=== PATIENT | female | born 1950 | race African-American/Black ===

== ENCOUNTER 2018-08-17 14:55 | Inpatient (IN) | payer OTHER ==
--- NOTE | 2018-08-17 16:13 | PDOC ---
History of Present Illness - General Chief Complaint: Cold Symptoms Stated Complaint: Shortness of Breath Time Seen by Provider: 08/17/18 16:13 - History of Present Illness Initial Comments: 67 year ld female with bronchitis, COPD (50year smoking history), CAD, and [place] ( on Eliquis) presenting with productive cough and increasing shortness of breath for the past few weeks. Patient states that she has had these symptoms for the past three weeks and hasn't had any releif with home breathing treatments or antibiotics. She does not remember the antibiotics that Dr. Gabriel Guthrie placed on her. Denies any fevers, chills, nausea, vomiting, diarrhea, increased leg swelling, hemoptysis, constipation or other symptoms. 08/17/18 18:41 Past History - Past Medical History Allergies/Adverse Reactions: Allergies Allergy/AdvReac Type Severity Reaction Status Date / Time Penicillins Allergy Severe Swelling, Verified 08/17/18 15:24 itching, difficulty breathing aspirin AdvReac gastric Verified 08/17/18 15:24 ulcer Home Medications: Ambulatory Orders Albuterol 0.083% Nebulizer Breanna [Ventolin 0.083% Nebulizer Soln -] 1 amp NEB TID 08/17/18 Apixaban [Eliquis] 5 mg PO BID 08/17/18 Diltiazem Cd [Cardizem Cd -] 240 mg PO DAILY 08/17/18 Docusate Sodium [Colace] 100 mg PO BID 08/17/18 Furosemide [Lasix] 40 mg PO DAILY 08/17/18 Gabapentin 400 mg PO HS 08/17/18 Gabapentin [Neurontin -] 300 mg PO Q8H 08/17/18 Linagliptin [Tradjenta] 5 mg PO DAILY 08/17/18 Ranitidine [Zantac -] 150 mg PO DAILY 08/17/18 Tiotropium [place] [Spiriva] 1 inh PO DAILY 08/17/18 Anemia: Yes Asthma: Yes Cardiac Disorders: Yes (cad, mi) CVA: No COPD: Yes (HX bronchitis) CHF: Yes Dementia: No Diabetes: Yes GI Disorders: Yes (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, peptic ulcer, hiatius hernia ) Disorders: Yes (recent dx of kidney disease) HTN: Yes Hypercholesterolemia: Yes (elevated lipids) Liver Disease: No Seizures: No Thyroid Disease: No - Surgical History Abdominal Surgery: Yes Appendectomy: Yes Cardiac Surgery: No Cholecystectomy: Yes Lung Surgery: No Neurologic Surgery: No Orthopedic Surgery: No - Suicide/Smoking/Psychosocial Hx Smoking Status: No Smoking History: Current every day smoker Have you smoked in the past 12 months: Yes Number of Cigarettes Smoked Daily: 4 Information on smoking cessation initiated: Yes 'Breaking Loose' booklet given: 11/29/13 Hx Alcohol Use: No Drug/Substance Use Hx: No Substance Use Type: None Hx Substance Use Treatment: No Review of Systems - Review of Systems Constitutional: No: Diaphoresis, Fever, Loss of Appetite HEENTM: No: Blurred Vision, Tearing Respiratory: Yes: Cough, Shortness of Breath, SOB with Exertion, Productive cough. No: Wheezing Cardiac (ROS): No: Chest Pain, Edema, Irregular Heart Rate, Other ABD/GI: No: Diarrhea, Nausea, Vomiting : No: Burning, Dysuria, Discharge, Frequency Musculoskeletal: No: Joint Pain, Joint Swelling Integumentary: No: Lesions, Lumps, Pallor Neurological: No: Numbness, Paresthesia, Tremors Psychiatric: No: Anxiety, Depression Endocrine: No: Flushing, Intolerance to Heat, Increased Hunger, Increased Thirst Hematologic/Lymphatic: Yes: Blood Clots, Easy Bleeding. No: Anemia *Physical Exam - Vital Signs Last Vital Signs Temp Pulse Resp BP Pulse Ox 98.3 F 69 18 127/61 99 08/17/18 15:24 08/17/18 15:24 08/17/18 15:24 08/17/18 15:24 08/17/18 15:24 - Physical Exam General Appearance: Yes: Nourished, Appropriately Dressed. No: Apparent Distress HEENT: positive: EOMI, LUCIUS, Normal ENT Inspection, Normal Voice Neck: positive: Trachea midline, Normal Thyroid, Supple. negative: Tender, Rigid Respiratory/Chest: negative: Chest Tender, Lungs Clear, Normal Breath Sounds ( bilaterla coarse breath sounds that are overall diminished), Respiratory Distress, Accessory Muscle Use Cardiovascular: positive: Regular Rhythm, Regular Rate Gastrointestinal/Abdominal: positive: Normal Bowel Sounds, Flat, Soft. negative : Tender Lymphatic: negative: Adenopathy, Tenderness Musculoskeletal: positive: Normal Inspection ED Treatment Course - LABORATORY CBC & Chemistry Diagram: 08/17/18 17:30 08/17/18 17:30 Medical Decision Making - Medical Decision Making 67 year old female with history of COPD and cough plus SOB for the past few weeks. She has been treated with steroids, abx, and nebs outpatient without much relief. WBC 16, CXR clear, but patient overall is higher risk given her refractory symptoms. Will bring in for IV abx under Hameedi. Given Levaquin and BNP sent. 08/17/18 19:54 *DC/Admit/Observation/Transfer Diagnosis at time of Disposition: COPD exacerbation PNA (pneumonia) Qualifiers: Pneumonia type: due to unspecified organism Laterality: unspecified laterality Lung location: unspecified part of lung Qualified Code(s): J18.9 - Pneumonia, unspecified organism CKD (chronic kidney disease) Qualifiers: Chronic kidney disease stage: stage 3 (moderate) Qualified Code(s): N18.3 - Chronic kidney disease, stage 3 (moderate) - Referrals Referrals: Gabriel Guthrie [Primary Care Provider] - - Patient Instructions - Post Discharge Activity
--- NOTE | 2018-08-17 17:23 | PDOC ---
Attending Attestation - Resident Resident Name: Bisi Aguilar - ED Attending Attestation I have performed the following: I have examined & evaluated the patient, The case was reviewed & discussed with the resident, I agree w/resident's findings & plan, Exceptions are as noted - HPI HPI: 08/17/18 18:14 The patient is a 67 year old female, with a significant past medical history of anemia, asthma, CAD (s/p [place]), COPD, CHF, DM, peptic ulcers, HTN, HLD, and lupus , who presents to the emergency department with, a cough, wheezing, and shortness of breath. As per patient, she was evaluated by her PCP for similar symptoms several weeks ago and placed on Prednisone and antibiotics. She notes her symptoms have not resolved, prompting her visit to the ER.. Allergies: Penicillins, aspirin Primary Care Physician: Dr. Guthrie <Elvis Trejo - Last Filed: 08/17/18 18:14> - Physicial Exam PE: 08/17/18 19:29 Agree with resident exam. Patient is well appearing with good air entry and with wheezes in the bases. Speaking in complete sentences. CV: RRR no murmurs. - Medical Decision Making 08/17/18 19:30 Pt presents to the ED complaining of shortness of breath and productive cough, despite abx, nebs and steroids by PMD. elevated wbc count. Given history and failure of outpatient meds, will admit to medicine for COPD exacerbation. <Tressa Fine - Last Filed: 08/17/18 19:32> Attestations - Attestations 08/17/18 18:14 Documentation prepared by Elvis Trejo, acting as emergency medical tech for Tressa Fine MD. <Elvis Trejo - Last Filed: 08/17/18 18:14>
[2018-08-17 17:55] LABS: BASO % 0.8 % (0-2.0); EOS % 0.4 % (0-4.5); HEMATOCRIT 51.3 % (32.4-45.2); HEMOGLOBIN 16.6 GM/dL (10.7-15.3); LYMPH % 19.2 % (8-40); MCH 30.5 pg (25.7-33.7); MCHC 32.4 g/dl (32.0-36.0); MEAN CELL VOLUME 94.2 fl (80-96); MEAN PLT VOLUME 8.3 fl (7.5-11.1); MONO % 5.5 % (3.8-10.2); NEUT % 74.1 % (42.8-82.8); PLATELET COUNT 308 K/MM3 (134-434); RBC 5.45 M/mm3 (3.60-5.2); RDW 14.7 % (11.6-15.6); WHITE BLOOD COUNT 16.4 K/mm3 (4.0-10.0)
[2018-08-17 17:57] LABS: VENOUS PC02 51.7 mmHg (38-52); VENOUS PH 7.37 (7.32-7.42); VENOUS PO2 34.3 mmHg (28-48)
[2018-08-17] MEDS ORDERED: methylPREDNISolone NA SUCC 125 MG/2 ML VIAL IVPB ONE (18:23)
[2018-08-17 18:28] LABS: ALBUMIN 3.2 g/dl (3.4-5.0); ALK PHOS 102 U/L (45-117); ANION GAP 7 MMOL/L (8-16); BILIRUBIN,TOTAL 0.3 mg/dL (0.2-1); BLOOD UREA NITROGEN 39 mg/dL (7-18); CALCIUM 9.5 mg/dL (8.5-10.1); CHLORIDE 103 mmol/L (98-107); CO2 29 mmol/L (21-32); CREATININE 1.8 mg/dL (0.55-1.3); POTASSIUM 4.7 mmol/L (3.5-5.1); SGOT/AST 12 U/L (15-37); SGPT/ALT 28 U/L (13-61); SODIUM 139 mmol/L (136-145); TOT PROT 6.8 g/dl (6.4-8.2)
[2018-08-17 18:35] LABS: GLUCOSE,RANDOM 308 mg/dL (74-106)
[2018-08-17] MEDS ORDERED: ALBUTEROL SO4 2.5/IPRATROPIUM 0.5 INH SOL 3 ML VIAL.NEB. NEB ONE (18:37)
[2018-08-17] MEDS ORDERED: ALBUTEROL SO4 0.083% IH SOL 2.5 MG/3 ML VIAL.NEB. NEB ONE (18:37)
[2018-08-17] MEDS: ALBUTEROL SO4 2.5/IPRATROPIUM 0.5 INH SOL 3 ML VIAL.NEB. NEB SCH ×4 (18:42→19:15)
[2018-08-17] MEDS ORDERED: methylPREDNISolone NA SUCC 125 MG/2 ML VIAL ONE (18:45)
[2018-08-17 19:53] LABS: N-TERMINAL BNP 2427.1 pg/ml (5-125)
--- NOTE | 2018-08-17 23:53 | HP ---
Admitting History and Physical - Primary Care Physician PCP: Hilario Lomeli - Admission History of Present Illness: 67 year ld female with bronchitis, COPD (50year smoking history), CAD, and [place] ( on Eliquis) presenting with productive cough and increasing shortness of breath for the past few weeks. Patient states that she has had these symptoms for the past three weeks and hasn't had any releif with home breathing treatments or antibiotics. She does not remember the antibiotics that Dr. Gabriel Guthrie placed on her. Denies any fevers, chills, nausea, vomiting, diarrhea, increased leg swelling, hemoptysis, constipation or other symptoms. - Past Medical History Cardiovascular: Yes: CAD, [place] Pulmonary: Yes: COPD - Smoking History Smoking history: Current every day smoker Have you smoked in the past 12 months: Yes Aproximately how many cigarettes per day: 4 - Alcohol/Substance Use Hx Alcohol Use: No Home Medications - Allergies Allergies/Adverse Reactions: Allergies Allergy/AdvReac Type Severity Reaction Status Date / Time Penicillins Allergy Severe Swelling, Verified 08/17/18 15:24 itching, difficulty breathing aspirin AdvReac gastric Verified 08/17/18 15:24 ulcer - Home Medications Home Medications: Ambulatory Orders Albuterol 0.083% Nebulizer Breanna [Ventolin 0.083% Nebulizer Soln -] 1 amp NEB TID 08/17/18 Apixaban [Eliquis] 5 mg PO BID 08/17/18 Diltiazem Cd [Cardizem Cd -] 240 mg PO DAILY 08/17/18 Docusate Sodium [Colace] 100 mg PO BID 08/17/18 Furosemide [Lasix] 40 mg PO DAILY 08/17/18 Gabapentin 400 mg PO HS 08/17/18 Gabapentin [Neurontin -] 300 mg PO Q8H 08/17/18 Linagliptin [Tradjenta] 5 mg PO DAILY 08/17/18 Ranitidine [Zantac -] 150 mg PO DAILY 08/17/18 Tiotropium [place] [Spiriva] 1 inh PO DAILY 08/17/18 Physical Examination Vital Signs: Vital Signs Temperature 97.7 F 08/17/18 23:05 Pulse Rate 84 08/17/18 23:05 Respiratory Rate 16 08/17/18 23:05 Blood Pressure 114/56 L 08/17/18 23:05 O2 Sat by Pulse Oximetry (%) 94 L 08/17/18 23:05 Constitutional: Yes: No Distress HENT: Yes: Atraumatic Neck: Yes: Supple Cardiovascular: Yes: Regular Rate and Rhythm Respiratory: Yes: Rhonchi, Wheezes Gastrointestinal: Yes: Normal Bowel Sounds Extremities: Yes: WNL Edema: No Peripheral Pulses WNL: Yes Neurological: Yes: Alert, Oriented Labs: CBC, BMP 08/17/18 17:30 08/17/18 17:30 Problem List - Problems (1) COPD exacerbation Assessment/Plan: duo nebs iv steroids if needed Code(s): J44.1 - CHRONIC OBSTRUCTIVE PULMONARY DISEASE W (ACUTE) EXACERBATION (2) PNA (pneumonia) Assessment/Plan: on abx id consult Code(s): J18.9 - PNEUMONIA, UNSPECIFIED ORGANISM Qualifiers: Pneumonia type: due to unspecified organism Laterality: unspecified laterality Lung location: unspecified part of lung Qualified Code(s): J18.9 - Pneumonia, unspecified organism (3) CKD (chronic kidney disease) Code(s): N18.9 - CHRONIC KIDNEY DISEASE, UNSPECIFIED Qualifiers: Chronic kidney disease stage: stage 3 (moderate) Qualified Code(s): N18.3 - Chronic kidney disease, stage 3 (moderate) (4) ASHD (arteriosclerotic heart disease) Code(s): I25.10 - ATHSCL HEART DISEASE OF [place] CORONARY ARTERY W/O ANG PCTRS (5) Bronchitis Code(s): J40 - BRONCHITIS, NOT SPECIFIED ACUTE OR CHRONIC (6) Diabetes Assessment/Plan: on meds bgms Code(s): E11.9 - TYPE 2 DIABETES MELLITUS WITHOUT COMPLICATIONS (7) Tobacco abuse Code(s): Z72.0 - TOBACCO USE Assessment/Plan Laboratory Tests 08/17/18 08/17/18 08/17/18 17:30 17:30 17:30 WBC 16.4 H RBC 5.45 H Hgb 16.6 H Hct 51.3 H MCV 94.2 MCH 30.5 MCHC 32.4 RDW 14.7 Plt Count 308 MPV 8.3 Absolute Neuts (auto) 12.2 H Neutrophils % 74.1 Lymphocytes % 19.2 D Monocytes % 5.5 Eosinophils % 0.4 Basophils % 0.8 Nucleated RBC % 0 VBG pH 7.37 POC VBG pCO2 51.7 POC VBG pO2 34.3 Mixed VBG HCO3 29.3 H Sodium 139 Potassium 4.7 Chloride 103 Carbon Dioxide 29 Anion Gap 7 L BUN 39 H Creatinine 1.8 H Creat Clearance w eGFR 27.90 Random Glucose 308 H* Calcium 9.5 Total Bilirubin 0.3 AST 12 L ALT 28 Alkaline Phosphatase 102 B-Natriuretic Peptide 2427.1 H Total Protein 6.8 Albumin 3.2 L Active Medications Generic Name Dose Route Start Last Admin Trade Name Freq PRN Reason Stop Dose Admin Albuterol/Ipratropium 1 amp 08/17/18 23:54 08/18/18 16:17 Duoneb - NEB 1 amp Q4H PRN Administration SHORTNESS OF BREATH Apixaban 5 mg 08/18/18 10:00 08/18/18 10:01 Eliquis - PO 5 mg BID DANISH Administration Diltiazem HCl 240 mg 08/18/18 10:00 08/18/18 10:01 Cardizem Cd - PO 240 mg DAILY DANISH Administration Docusate Sodium 100 mg 08/18/18 10:00 08/18/18 10:01 Colace - PO 100 mg BID DANISH Administration Emollient Ointment 1 applic 08/18/18 12:38 Aquaphor - TP Q12H PRN DRYNESS Furosemide 40 mg 08/18/18 10:00 08/18/18 10:01 Lasix - PO 40 mg DAILY [facility]ANISH Administration Gabapentin 300 mg 08/18/18 06:00 08/18/18 13:10 Neurontin - PO 300 mg TID DANISH Administration Guaifenesin 10 ml 08/18/18 12:37 08/18/18 13:10 Robitussin - PO 10 ml Q6H PRN Administration COUGHING Aztreonam 1 gm/ Dextrose 50 mls @ 100 mls/hr 08/18/18 13:45 08/18/18 15:01 IVPB 100 mls/hr BID DANISH Administration Protocol Clindamycin Phosphate 300 mg in 50 mls @ 100 mls/hr 08/18/18 14:15 08/18/18 17:35 Cleocin 300 Mg Premix Ivpb IVPB 100 mls/hr Q8H-IV DANISH Administration Protocol Ranitidine HCl 150 mg 08/18/18 10:00 08/18/18 10:00 Zantac - PO 150 mg DAILY DANISH Administration Sitagliptin Phosphate 25 mg 08/18/18 07:00 08/18/18 06:30 Januvia - PO Not Given DAILY@0700 [facility] Tiotropium [place] 2 puff 08/18/18 10:00 08/18/18 13:09 Spiriva Respimat IH 2 puff DAILY DANISH Administration
[2018-08-18] MEDS: sitaGLIPtin PHOSPHATE 25 MG TABLET (FP) PO SCH (06:30)
[2018-08-18] MEDS: GABAPENTIN 300 MG CAPSULE (FP) PO SCH ×3 (06:30→22:15)
[2018-08-18 07:15] LABS: BASO % 0.1 % (0-2.0); HEMATOCRIT 47.3 % (32.4-45.2); HEMOGLOBIN 15.4 GM/dL (10.7-15.3); LYMPH % 6.5 % (8-40); MCH 30.7 pg (25.7-33.7); MCHC 32.5 g/dl (32.0-36.0); MEAN CELL VOLUME 94.5 fl (80-96); MEAN PLT VOLUME 8.2 fl (7.5-11.1); MONO % 0.7 % (3.8-10.2); NEUT % 92.7 % (42.8-82.8); PLATELET COUNT 244 K/MM3 (134-434); RBC 5.01 M/mm3 (3.60-5.2); RDW 14.2 % (11.6-15.6)
[2018-08-18 08:16] LABS: ALBUMIN 2.9 g/dl (3.4-5.0); ALK PHOS 102 U/L (45-117); ANION GAP 7 MMOL/L (8-16); BILIRUBIN,TOTAL 0.6 mg/dL (0.2-1); BLOOD UREA NITROGEN 45 mg/dL (7-18); CHLORIDE 100 mmol/L (98-107); CO2 29 mmol/L (21-32); CREATININE 2.1 mg/dL (0.55-1.3); POTASSIUM 5.1 mmol/L (3.5-5.1); SGOT/AST 25 U/L (15-37); SGPT/ALT 37 U/L (13-61); SODIUM 136 mmol/L (136-145); TOT PROT 6.6 g/dl (6.4-8.2)
[2018-08-18 08:21] LABS: GLUCOSE,RANDOM 462 mg/dL (74-106)
--- NOTE | 2018-08-18 09:51 | CON.ID ---
Consult Consult Specialty:: infectious diseases Referred by:: Reason for Consultation:: pneumonia - History of Present Illness Chief Complaint: cough,sob History of Present Illness: 67 year old female, with a significant past medical history of anemia, asthma, CAD (s/p [place]), COPD, CHF, DM, peptic ulcers, HTN, HLD, and lupus, admitted to the hospital because of cough sob wheezing patient was given a trial of steroids and abx by her pcp on the outside which did not help her and patient came to the hospital here patient mentions of significant sob, yellowish green sputum production - History Source Limitations to Obtaining History: No Limitations - Alcohol/Substance Use Hx Alcohol Use: No - Smoking History Smoking history: Current every day smoker Have you smoked in the past 12 months: Yes Aproximately how many cigarettes per day: 4 Home Medications - Allergies Allergies/Adverse Reactions: Allergies Allergy/AdvReac Type Severity Reaction Status Date / Time Penicillins Allergy Severe Swelling, Verified 08/17/18 15:24 itching, difficulty breathing aspirin AdvReac gastric Verified 08/17/18 15:24 ulcer - Home Medications Home Medications: Ambulatory Orders Albuterol 0.083% Nebulizer Breanna [Ventolin 0.083% Nebulizer Soln -] 1 amp NEB TID 08/17/18 Apixaban [Eliquis] 5 mg PO BID 08/17/18 Diltiazem Cd [Cardizem Cd -] 240 mg PO DAILY 08/17/18 Docusate Sodium [Colace] 100 mg PO BID 08/17/18 Furosemide [Lasix] 40 mg PO DAILY 08/17/18 Gabapentin 400 mg PO HS 08/17/18 Gabapentin [Neurontin -] 300 mg PO Q8H 08/17/18 Linagliptin [Tradjenta] 5 mg PO DAILY 08/17/18 Ranitidine [Zantac -] 150 mg PO DAILY 08/17/18 Tiotropium [place] [Spiriva] 1 inh PO DAILY 08/17/18 Review of Systems - Review of Systems Constitutional: reports: No Symptoms Eyes: reports: No Symptoms HENT: reports: No Symptoms Neck: reports: No Symptoms Cardiovascular: reports: No Symptoms Respiratory: reports: SOB, SOB on Exertion, Other (cough) Gastrointestinal: reports: No Symptoms Genitourinary: reports: No Symptoms Musculoskeletal: reports: No Symptoms Integumentary: reports: No Symptoms Neurological: reports: No Symptoms Endocrine: reports: No Symptoms Hematology/Lymphatic: reports: No Symptoms Psychiatric: reports: No Symptoms Physical Exam Vital Signs: Vital Signs Temperature 98.1 F 08/18/18 06:00 Pulse Rate 76 08/18/18 06:00 Respiratory Rate 20 08/18/18 06:00 Blood Pressure 120/58 L 08/18/18 06:00 O2 Sat by Pulse Oximetry (%) 94 L 08/17/18 23:05 Constitutional: Yes: Well Nourished, Calm, Mild Distress, Obese Eyes: Yes: Conjunctiva Clear HENT: Yes: Atraumatic, Normocephalic Neck: Yes: Supple, Trachea Midline Cardiovascular: Yes: Regular Rate and Rhythm Respiratory: Yes: Regular, Rhonchi, SOB, SOB on Exertion Gastrointestinal: Yes: Normal Bowel Sounds, Soft Musculoskeletal: Yes: WNL Extremities: Yes: WNL Neurological: Yes: Alert, Oriented Psychiatric: Yes: Alert, Oriented Labs: CBC, BMP 08/18/18 06:30 08/18/18 06:30 Imaging - Results Chest X-ray: Report Reviewed, Image Reviewed Assessment/Plan - Problems (1) COPD exacerbation Code(s): J44.1 - CHRONIC OBSTRUCTIVE PULMONARY DISEASE W (ACUTE) EXACERBATION (2) PNA (pneumonia) Code(s): J18.9 - PNEUMONIA, UNSPECIFIED ORGANISM Qualifiers: Pneumonia type: due to unspecified organism Laterality: unspecified laterality Lung location: unspecified part of lung Qualified Code(s): J18.9 - Pneumonia, unspecified organism (3) CKD (chronic kidney disease) Code(s): N18.9 - CHRONIC KIDNEY DISEASE, UNSPECIFIED Qualifiers: Chronic kidney disease stage: stage 3 (moderate) Qualified Code(s): N18.3 - Chronic kidney disease, stage 3 (moderate) plan will start patient on aztreonam resp support incentive brianna rest as per the team
[2018-08-18] MEDS ORDERED: PT OWN MED DRAWER 7, Y5N ONE ×4 (09:55→21:59)
[2018-08-18] MEDS: RANITIDINE HCL 150 MG TABLET (FP) PO SCH (10:00)
[2018-08-18] MEDS ORDERED: PATIENT'S OWN MEDICATION (NON-FORMULARY) (Linagliptin [Tradjenta] 5 MG) PO SCH (10:00)
[2018-08-18] MEDS: APIXABAN 5 MG TABLET PO SCH ×2 (10:01→22:14)
[2018-08-18] MEDS: FUROSEMIDE 40 MG TABLET (FP) PO SCH (10:01)
[2018-08-18] MEDS: DOCUSATE SODIUM 100 MG CAPSULE (FP) PO SCH ×2 (10:01→22:14)
[2018-08-18 10:34] LABS: ANISOCYTOSIS 1+; MACROCYTOSIS 1+; PLATELET ESTIMATE NORMAL
[2018-08-18] MEDS: ALBUTEROL SO4 2.5/IPRATROPIUM 0.5 INH SOL 3 ML VIAL.NEB. NEB PRN ×3 (11:22→21:59)
[2018-08-18] MEDS: TIOTROPIUM BROMIDE 2.5 MCG (SPIRIVA) RESPIMAT INHALER IH SCH (13:09)
[2018-08-18] MEDS: guaiFENesin 200 MG/10 ML 10 ML UNIT-DOSE CUPS PO PRN ×2 (13:10→22:31)
[2018-08-18] MEDS ORDERED: CLINDAMYCIN IVPB 300 MG in DEXTROSE 5%-WATER - 48 ML IVPB SCH (13:45)
[2018-08-18] MEDS ORDERED: CLINDAMYCIN 300 MG PREMIX IVPB 300 MG/50 ML BAG IVPB SCH (14:06)
[2018-08-18] MEDS: AZTREONAM 1 GM in DEXTROSE 5%-WATER - 50 ML IVPB SCH ×2 (15:01→22:09)
[2018-08-18] MEDS: CLINDAMYCIN 300 MG PREMIX IVPB 300 MG/50 ML BAG IVPB SCH ×2 (15:59→17:35)
--- NOTE | 2018-08-18 16:03 | PN ---
Progress Note, Physician History of Present Illness: feeling better - Current Medication List Current Medications: Active Medications Albuterol/Ipratropium (Duoneb -) 1 amp NEB Q4H PRN PRN Reason: SHORTNESS OF BREATH Last Admin: 08/18/18 11:22 Dose: 1 amp Apixaban (Eliquis -) 5 mg PO BID [facility] Last Admin: 08/18/18 10:01 Dose: 5 mg Diltiazem HCl (Cardizem Cd -) 240 mg PO DAILY [facility] Last Admin: 08/18/18 10:01 Dose: 240 mg Docusate Sodium (Colace -) 100 mg PO BID [facility] Last Admin: 08/18/18 10:01 Dose: 100 mg Emollient Ointment (Aquaphor -) 1 applic TP Q12H PRN PRN Reason: DRYNESS Furosemide (Lasix -) 40 mg PO DAILY [facility] Last Admin: 08/18/18 10:01 Dose: 40 mg Gabapentin (Neurontin -) 300 mg PO TID [facility] Last Admin: 08/18/18 13:10 Dose: 300 mg Guaifenesin (Robitussin -) 10 ml PO Q6H PRN PRN Reason: COUGHING Last Admin: 08/18/18 13:10 Dose: 10 ml Aztreonam 1 gm/ Dextrose 50 mls @ 100 mls/hr IVPB BID [facility]; Protocol Last Admin: 08/18/18 15:01 Dose: 100 mls/hr Clindamycin Phosphate (Cleocin 300 Mg Premix Ivpb) 300 mg in 50 mls @ 100 mls/ hr IVPB Q8H-IV [facility]ANISH; Protocol Last Admin: 08/18/18 15:59 Dose: 100 mls/hr Ranitidine HCl (Zantac -) 150 mg PO DAILY [facility] Last Admin: 08/18/18 10:00 Dose: 150 mg Sitagliptin Phosphate (Januvia -) 25 mg PO DAILY@0700 [facility] Last Admin: 08/18/18 06:30 Dose: Not Given Tiotropium [place] (Spiriva Respimat) 2 puff IH DAILY [facility] Last Admin: 08/18/18 13:09 Dose: 2 puff - Objective Vital Signs: Vital Signs Temperature 98.2 F 08/18/18 13:58 Pulse Rate 98 H 08/18/18 13:58 Respiratory Rate 20 08/18/18 13:58 Blood Pressure 111/76 08/18/18 13:58 O2 Sat by Pulse Oximetry (%) 96 08/18/18 09:00 Constitutional: Yes: No Distress HENT: Yes: Atraumatic Neck: Yes: Supple Cardiovascular: Yes: Regular Rate and Rhythm Respiratory: Yes: Rhonchi, Wheezes Gastrointestinal: Yes: Normal Bowel Sounds Extremities: Yes: WNL Edema: No Peripheral Pulses WNL: Yes Neurological: Yes: Alert, Oriented Labs: CBC, BMP 08/18/18 06:30 08/18/18 06:30 Problem List - Problems (1) COPD exacerbation Assessment/Plan: duo nebs iv steroids if needed Code(s): J44.1 - CHRONIC OBSTRUCTIVE PULMONARY DISEASE W (ACUTE) EXACERBATION (2) PNA (pneumonia) Assessment/Plan: on abx id consult Code(s): J18.9 - PNEUMONIA, UNSPECIFIED ORGANISM Qualifiers: Pneumonia type: due to unspecified organism Laterality: unspecified laterality Lung location: unspecified part of lung Qualified Code(s): J18.9 - Pneumonia, unspecified organism (3) Diabetes Assessment/Plan: on meds bgms Code(s): E11.9 - TYPE 2 DIABETES MELLITUS WITHOUT COMPLICATIONS (4) ASHD (arteriosclerotic heart disease) Code(s): I25.10 - ATHSCL HEART DISEASE OF [place] CORONARY ARTERY W/O ANG PCTRS (5) Acute hypercapnic respiratory failure Code(s): J96.02 - ACUTE RESPIRATORY FAILURE WITH HYPERCAPNIA (6) CKD (chronic kidney disease) Code(s): N18.9 - CHRONIC KIDNEY DISEASE, UNSPECIFIED Qualifiers: Chronic kidney disease stage: stage 3 (moderate) Qualified Code(s): N18.3 - Chronic kidney disease, stage 3 (moderate) (7) Tobacco abuse Code(s): Z72.0 - TOBACCO USE
[2018-08-18] MEDS: methylPREDNISolone NA SUCC 40 MG/1 ML VIAL IVPUSH SCH (22:07)
[2018-08-18] MEDS: INSULIN SLIDING SCALE (NOVOLOG) 1 VIAL SQ SCH (22:15)
[2018-08-19] MEDS: CLINDAMYCIN 300 MG PREMIX IVPB 300 MG/50 ML BAG IVPB SCH ×3 (02:19→17:50)
[2018-08-19] MEDS: methylPREDNISolone NA SUCC 40 MG/1 ML VIAL IVPUSH SCH ×4 (03:39→17:50)
[2018-08-19] MEDS: GABAPENTIN 300 MG CAPSULE (FP) PO SCH ×3 (06:30→21:05)
[2018-08-19] MEDS: INSULIN SLIDING SCALE (NOVOLOG) 1 VIAL SQ SCH ×4 (06:31→21:05)
[2018-08-19] MEDS: sitaGLIPtin PHOSPHATE 25 MG TABLET (FP) PO SCH (06:31)
[2018-08-19] MEDS: ALBUTEROL SO4 2.5/IPRATROPIUM 0.5 INH SOL 3 ML VIAL.NEB. NEB PRN ×2 (06:48→12:50)
[2018-08-19] MEDS ORDERED: PT OWN MED DRAWER 7, Y5N ONE ×2 (08:44→21:02)
[2018-08-19] MEDS: APIXABAN 5 MG TABLET PO SCH ×2 (09:26→21:05)
[2018-08-19] MEDS: FUROSEMIDE 40 MG TABLET (FP) PO SCH (09:26)
[2018-08-19] MEDS: RANITIDINE HCL 150 MG TABLET (FP) PO SCH (09:26)
[2018-08-19] MEDS: DOCUSATE SODIUM 100 MG CAPSULE (FP) PO SCH ×2 (09:26→21:05)
[2018-08-19] MEDS: guaiFENesin 200 MG/10 ML 10 ML UNIT-DOSE CUPS PO PRN (09:27)
[2018-08-19] MEDS: AZTREONAM 1 GM in DEXTROSE 5%-WATER - 50 ML IVPB SCH ×2 (09:27→21:04)
[2018-08-19] MEDS: TIOTROPIUM BROMIDE 2.5 MCG (SPIRIVA) RESPIMAT INHALER IH SCH (09:49)
--- NOTE | 2018-08-19 12:20 | PN ---
Progress Note, Physician History of Present Illness: still continues to cough says still greenish sputum still sob - Current Medication List Current Medications: Active Medications Albuterol/Ipratropium (Duoneb -) 1 amp NEB Q4H PRN PRN Reason: SHORTNESS OF BREATH Last Admin: 08/19/18 06:48 Dose: 1 amp Apixaban (Eliquis -) 5 mg PO BID [facility] Last Admin: 08/19/18 09:26 Dose: 5 mg Diltiazem HCl (Cardizem Cd -) 240 mg PO DAILY [facility] Last Admin: 08/19/18 09:27 Dose: 240 mg Docusate Sodium (Colace -) 100 mg PO BID [facility] Last Admin: 08/19/18 09:26 Dose: 100 mg Emollient Ointment (Aquaphor -) 1 applic TP Q12H PRN PRN Reason: DRYNESS Furosemide (Lasix -) 40 mg PO DAILY [facility] Last Admin: 08/19/18 09:26 Dose: 40 mg Gabapentin (Neurontin -) 300 mg PO TID [facility] Last Admin: 08/19/18 06:30 Dose: 300 mg Guaifenesin (Robitussin -) 10 ml PO Q6H PRN PRN Reason: COUGHING Last Admin: 08/19/18 09:27 Dose: 10 ml Aztreonam 1 gm/ Dextrose 50 mls @ 100 mls/hr IVPB BID [facility]; Protocol Last Admin: 08/19/18 09:27 Dose: 100 mls/hr Clindamycin Phosphate (Cleocin 300 Mg Premix Ivpb) 300 mg in 50 mls @ 100 mls/ hr IVPB Q8H-IV [facility]; Protocol Last Admin: 08/19/18 09:28 Dose: 100 mls/hr Insulin Aspart (Novolog Vial Sliding Scale -) 1 vial SQ ACHS [facility]; Protocol Last Admin: 08/19/18 11:12 Dose: Not Given Methylprednisolone Sodium Succinate (Solu-Medrol -) 60 mg IVPUSH Q6H-IV [facility] Last Admin: 08/19/18 09:27 Dose: 60 mg Ranitidine HCl (Zantac -) 150 mg PO DAILY [facility] Last Admin: 08/19/18 09:26 Dose: 150 mg Sitagliptin Phosphate (Januvia -) 25 mg PO DAILY@0700 [facility] Last Admin: 08/19/18 06:31 Dose: Not Given Tiotropium [place] (Spiriva Respimat) 2 puff IH DAILY [facility] Last Admin: 08/19/18 09:49 Dose: 2 puff - Objective Vital Signs: Vital Signs Temperature 98.2 F 08/19/18 10:00 Pulse Rate 96 H 08/19/18 10:00 Respiratory Rate 26 H 08/19/18 10:00 Blood Pressure 132/64 08/19/18 10:00 O2 Sat by Pulse Oximetry (%) 99 08/19/18 09:00 Constitutional: Yes: Calm, Mild Distress, Obese Cardiovascular: Yes: S1, S2 Respiratory: Yes: On Nasal O2, Poor Air Entry (bases), Rhonchi Gastrointestinal: Yes: Normal Bowel Sounds, Soft Musculoskeletal: Yes: WNL Extremities: Yes: WNL Neurological: Yes: Alert, Oriented Psychiatric: Yes: Alert, Oriented Labs: CBC, BMP 08/18/18 06:30 08/18/18 06:30 Assessment/Plan - Problems (1) COPD exacerbation Code(s): J44.1 - CHRONIC OBSTRUCTIVE PULMONARY DISEASE W (ACUTE) EXACERBATION (2) PNA (pneumonia) Code(s): J18.9 - PNEUMONIA, UNSPECIFIED ORGANISM Qualifiers: Pneumonia type: due to unspecified organism Laterality: unspecified laterality Lung location: unspecified part of lung Qualified Code(s): J18.9 - Pneumonia, unspecified organism (3) CKD (chronic kidney disease) Code(s): N18.9 - CHRONIC KIDNEY DISEASE, UNSPECIFIED Qualifiers: Chronic kidney disease stage: stage 3 (moderate) Qualified Code(s): N18.3 - Chronic kidney disease, stage 3 (moderate) plan ct abx resp support incentive brianna rest as per the team
--- NOTE | 2018-08-19 14:31 | PN ---
Progress Note (short form) - Note Progress Note: PULMONARY CONSULTATION DICTATED 08/19/18 IMP ACUTE HYPERCAPNEIC RESPIRATORY FAILURE COPD EXACERBATION LIKELY URI ASHD S/P OK CKD H/O DVT HYPERGLYCEMIA TOBACCO ABUSE PLAN IV STEROIDS INHALED BRONCHODILATORS ABX SPUTUM C+S GLYCEMIC CONTROL PFTS OUTPATIENT O2 SAT AT REST AND EXERCISE ON RA TO DETERMINE IF PT IS A CANDIDATE FOR HOME O2 F/U ABG ON RA DR WILLIAMSON Problem List - Problems (1) Bronchitis Code(s): J40 - BRONCHITIS, NOT SPECIFIED ACUTE OR CHRONIC (2) CKD (chronic kidney disease) Code(s): N18.9 - CHRONIC KIDNEY DISEASE, UNSPECIFIED Qualifiers: Chronic kidney disease stage: stage 3 (moderate) Qualified Code(s): N18.3 - Chronic kidney disease, stage 3 (moderate) (3) COPD exacerbation Code(s): J44.1 - CHRONIC OBSTRUCTIVE PULMONARY DISEASE W (ACUTE) EXACERBATION (4) Diabetes Code(s): E11.9 - TYPE 2 DIABETES MELLITUS WITHOUT COMPLICATIONS (5) ASHD (arteriosclerotic heart disease) Code(s): I25.10 - ATHSCL HEART DISEASE OF [place] CORONARY ARTERY W/O ANG PCTRS (6) Tobacco abuse Code(s): Z72.0 - TOBACCO USE (7) Tobacco abuse counseling Code(s): Z71.6 - TOBACCO ABUSE COUNSELING (8) Acute hypercapnic respiratory failure Code(s): J96.02 - ACUTE RESPIRATORY FAILURE WITH HYPERCAPNIA
--- NOTE | 2018-08-19 15:19 | CONS ---
DATE OF CONSULTATION: 08/19/2018 PULMONARY CONSULTATION REFERRING PHYSICIAN: Hilario Lomeli MD HISTORY OF PRESENT ILLNESS: The patient is a 67-year-old Black female with a past medical history of chronic obstructive pulmonary disease maintained on inhaled bronchodilators, ASHD, status post [place], a history of DVT right lower extremity approximately 4 years ago on Eliquis, and a history of tobacco use currently smoking about 7 or 8 cigarettes daily for many years admitted to [facility] with a 2-week history of increasing shortness of breath, chest congestion and a cough productive of white yellow sputum. The patient states she was doing okay until a couple of weeks ago when she started developing increasing chest congestion. She started taking an increasing dose of her nebulizers which offered no significant improvement at which time she presented to the emergency room. Of note also is that she was treated with antibiotics which did not improve her symptoms. On admission she was felt to have acute COPD exacerbation. She was evaluated by Infectious Disease and placed on antibiotic therapy. The patient has a history of COPD for years. She is a retired RN. There is no history of recent travel. There is no history of hemoptysis, chest pains, or palpitations. She denies any fevers, weight loss or night sweats. PAST MEDICAL HISTORY: Again includes COPD, a history of DVT, ASHD, status post [place], hypercholesterolemia, bronchitis, and chronic kidney disease. REVIEW OF SYSTEMS: Positive shortness of breath, positive cough, and positive chest congestion. No chest pain, no palpitations, no nausea, no vomiting, no abdominal pain, no fevers, no chills, no weight loss or night sweats, and no lower extremity edema. CURRENT MEDICATIONS: Include Solu-Medrol 60 every 6 hours, Azactam, clindamycin , Eliquis, Neurontin, Spiriva, Aquaphor, Cardizem, Colace, Januvia, robitussin, Zantac, and Lasix. PHYSICAL EXAMINATION: General: The patient is an elderly Black female who is awake, alert, and mildly congested but in no acute distress. Vital Signs: She is afebrile. Heart rate is 96, blood pressure 132/64, respiratory rate is 20, and oxygen saturation is 99% on 2 L nasal cannula. HEENT: Normocephalic, atraumatic. Neck: Supple. Heart: Regular S1, S2. Chest: Scattered bilateral rhonchi. Abdomen: Soft. Bowel sounds are positive. Extremities: No cyanosis, clubbing, or edema. LABORATORY DATA: WBC is 15, hemoglobin is 15.4, and hematocrit is 47.3 with a platelet count of 244,000. INR was not done. Venous blood gas was 7.37, PCO2 of 51, a PO2 of 34, and a bicarbonate of 29. BUN 45, creatinine 2.1, and glucose 462. BNP is 24.27. Chest x-ray reveals no acute infiltrates or effusions. Of note is a chest CT performed September 26, 2017 that revealed no acute infiltrates and no masses. There was a 2-mm pleural based nodule in the right upper lobe. IMPRESSION: Acute hypercapnic respiratory failure secondary to: 1. Chronic obstructive pulmonary disease with acute exacerbation. 2. Likely acute bronchitis. 3. Arteriosclerotic heart disease, status post myocardial infarction. 4. History of deep venous thrombosis. 5. Chronic kidney disease. 6. Hyperglycemia. PLAN: IV steroids, inhaled bronchodilators, supplemental oxygen, PFTs outpatient, sputum for C+S, check oxygen saturation at rest and post exercise, post prior to discharge to determine whether the patient is a candidate for home oxygen therapy. ABG on room air prior to discharge to see the patient has any significant hypercapnea. CLAUDIA WILLIAMSON M.D. [id number] MTDD
--- NOTE | 2018-08-19 15:37 | PN ---
Progress Note, Physician History of Present Illness: feeling better - Current Medication List Current Medications: Active Medications Albuterol Sulfate (Ventolin 0.083% Nebulizer Soln -) 1 amp NEB Q4H PRN PRN Reason: SHORT OF BREATH/WHEEZING Apixaban (Eliquis -) 5 mg PO BID [facility] Last Admin: 08/19/18 09:26 Dose: 5 mg Arformoterol Tartrate (Brovana (Restricted To Pulmonology/Resp) -) 1 amp NEB RBID [facility] Diltiazem HCl (Cardizem Cd -) 240 mg PO DAILY [facility] Last Admin: 08/19/18 09:27 Dose: 240 mg Docusate Sodium (Colace -) 100 mg PO BID [facility] Last Admin: 08/19/18 09:26 Dose: 100 mg Emollient Ointment (Aquaphor -) 1 applic TP Q12H PRN PRN Reason: DRYNESS Furosemide (Lasix -) 40 mg PO DAILY [facility] Last Admin: 08/19/18 09:26 Dose: 40 mg Gabapentin (Neurontin -) 300 mg PO TID [facility] Last Admin: 08/19/18 14:19 Dose: 300 mg Guaifenesin (Robitussin -) 10 ml PO Q6H PRN PRN Reason: COUGHING Last Admin: 08/19/18 09:27 Dose: 10 ml Aztreonam 1 gm/ Dextrose 50 mls @ 100 mls/hr IVPB BID [facility]; Protocol Last Admin: 08/19/18 09:27 Dose: 100 mls/hr Clindamycin Phosphate (Cleocin 300 Mg Premix Ivpb) 300 mg in 50 mls @ 100 mls/ hr IVPB Q8H-IV [facility]; Protocol Last Admin: 08/19/18 09:28 Dose: 100 mls/hr Insulin Aspart (Novolog Vial Sliding Scale -) 1 vial SQ ACHS [facility]; Protocol Last Admin: 08/19/18 11:12 Dose: Not Given Methylprednisolone Sodium Succinate (Solu-Medrol -) 60 mg IVPUSH Q8H-IV [facility] Ranitidine HCl (Zantac -) 150 mg PO DAILY [facility] Last Admin: 08/19/18 09:26 Dose: 150 mg Sitagliptin Phosphate (Januvia -) 25 mg PO DAILY@0700 [facility] Last Admin: 08/19/18 06:31 Dose: Not Given Tiotropium [place] (Spiriva Respimat) 2 puff IH DAILY [facility] Last Admin: 08/19/18 09:49 Dose: 2 puff - Objective Vital Signs: Vital Signs Temperature 98.6 F 08/19/18 15:19 Pulse Rate 102 H 08/19/18 15:19 Respiratory Rate 18 08/19/18 15:19 Blood Pressure 122/58 L 08/19/18 15:19 O2 Sat by Pulse Oximetry (%) 99 08/19/18 09:00 Constitutional: Yes: No Distress HENT: Yes: Atraumatic Neck: Yes: Supple Cardiovascular: Yes: Regular Rate and Rhythm Respiratory: Yes: Rhonchi Gastrointestinal: Yes: Normal Bowel Sounds Extremities: Yes: WNL Edema: No Peripheral Pulses WNL: Yes Neurological: Yes: Alert, Oriented Labs: CBC, BMP 08/18/18 06:30 08/18/18 06:30 Problem List - Problems (1) COPD exacerbation Assessment/Plan: duo nebs iv steroids if needed Code(s): J44.1 - CHRONIC OBSTRUCTIVE PULMONARY DISEASE W (ACUTE) EXACERBATION (2) PNA (pneumonia) Assessment/Plan: on abx id consult Code(s): J18.9 - PNEUMONIA, UNSPECIFIED ORGANISM Qualifiers: Pneumonia type: due to unspecified organism Laterality: unspecified laterality Lung location: unspecified part of lung Qualified Code(s): J18.9 - Pneumonia, unspecified organism (3) Diabetes Assessment/Plan: on meds bgms Code(s): E11.9 - TYPE 2 DIABETES MELLITUS WITHOUT COMPLICATIONS (4) ASHD (arteriosclerotic heart disease) Code(s): I25.10 - ATHSCL HEART DISEASE OF [place] CORONARY ARTERY W/O ANG PCTRS (5) CKD (chronic kidney disease) Code(s): N18.9 - CHRONIC KIDNEY DISEASE, UNSPECIFIED Qualifiers: Chronic kidney disease stage: stage 3 (moderate) Qualified Code(s): N18.3 - Chronic kidney disease, stage 3 (moderate) (6) Tobacco abuse Code(s): Z72.0 - TOBACCO USE
[2018-08-19] MEDS: ARFORMOTEROL TARTRATE 15 MCG/2 ML VIAL NEB SCH (20:28)
[2018-08-19] MEDS ORDERED: INSULIN (NOVOLOG) ASPART 100 UNITS/ML 10ML VIAL ONE (21:01)
[2018-08-20] MEDS ORDERED: PT OWN MED DRAWER 7, Y5N ONE ×5 (01:20→21:39)
[2018-08-20] MEDS: CLINDAMYCIN 300 MG PREMIX IVPB 300 MG/50 ML BAG IVPB SCH ×3 (01:40→17:55)
[2018-08-20] MEDS: methylPREDNISolone NA SUCC 40 MG/1 ML VIAL IVPUSH SCH ×4 (01:40→21:25)
[2018-08-20] MEDS: sitaGLIPtin PHOSPHATE 25 MG TABLET (FP) PO SCH ×3 (06:04→08:36)
[2018-08-20] MEDS: GABAPENTIN 300 MG CAPSULE (FP) PO SCH ×5 (06:04→21:25)
[2018-08-20] MEDS: INSULIN SLIDING SCALE (NOVOLOG) 1 VIAL SQ SCH ×4 (06:04→21:25)
[2018-08-20] MEDS ORDERED: INSULIN (NOVOLOG) ASPART 100 UNITS/ML 10ML VIAL ONE (06:08)
[2018-08-20 07:27] LABS: HEMATOCRIT 48.1 % (32.4-45.2); HEMOGLOBIN 15.4 GM/dL (10.7-15.3); MCH 30.1 pg (25.7-33.7); MCHC 31.9 g/dl (32.0-36.0); MEAN CELL VOLUME 94.1 fl (80-96); MEAN PLT VOLUME 8.4 fl (7.5-11.1); PLATELET COUNT 235 K/MM3 (134-434); RBC 5.12 M/mm3 (3.60-5.2); RDW 14.7 % (11.6-15.6); WHITE BLOOD COUNT 14.2 K/mm3 (4.0-10.0)
[2018-08-20] MEDS: ARFORMOTEROL TARTRATE 15 MCG/2 ML VIAL NEB SCH ×2 (07:51→21:16)
[2018-08-20 08:03] LABS: ANION GAP 10 MMOL/L (8-16); BLOOD UREA NITROGEN 51 mg/dL (7-18); CALCIUM 9.6 mg/dL (8.5-10.1); CHLORIDE 98 mmol/L (98-107); CO2 28 mmol/L (21-32); POTASSIUM 4.5 mmol/L (3.5-5.1); SODIUM 135 mmol/L (136-145)
[2018-08-20 08:49] LABS: GLUCOSE,RANDOM 544 mg/dL (74-106)
[2018-08-20] MEDS: FUROSEMIDE 40 MG TABLET (FP) PO SCH (09:13)
[2018-08-20] MEDS: RANITIDINE HCL 150 MG TABLET (FP) PO SCH (09:13)
[2018-08-20] MEDS: AZTREONAM 1 GM in DEXTROSE 5%-WATER - 50 ML IVPB SCH ×2 (09:13→21:26)
[2018-08-20] MEDS: APIXABAN 5 MG TABLET PO SCH ×2 (09:13→21:25)
[2018-08-20] MEDS: DOCUSATE SODIUM 100 MG CAPSULE (FP) PO SCH ×2 (09:13→21:25)
[2018-08-20] MEDS: TIOTROPIUM BROMIDE 2.5 MCG (SPIRIVA) RESPIMAT INHALER IH SCH (09:21)
[2018-08-20] MEDS: guaiFENesin 200 MG/10 ML 10 ML UNIT-DOSE CUPS PO PRN ×2 (09:28→22:21)
--- NOTE | 2018-08-20 10:11 | PN ---
Progress Note (short form) - Note Progress Note: Still with congested cough. Does not feel at baseline. Refusing to have blood glucose of almost 600 treated despite explaining the risk and the benefits. Intake & Output 08/17/18 08/18/18 08/19/18 08/20/18 23:59 23:59 23:59 23:59 Intake Total 100 1520 1040 100 Balance 100 1520 1040 100 Weight 216 lb 5 oz 211 lb 6.4 oz Last Vital Signs Temp Pulse Resp BP Pulse Ox 97.9 F 64 20 144/77 99 08/20/18 06:47 08/20/18 06:47 08/20/18 06:47 08/20/18 06:47 08/19/18 20:30 Active Medications Albuterol Sulfate (Ventolin 0.083% Nebulizer Soln -) 1 amp NEB Q4H PRN PRN Reason: SHORT OF BREATH/WHEEZING Apixaban (Eliquis -) 5 mg PO BID [facility] Last Admin: 08/20/18 09:13 Dose: 5 mg Arformoterol Tartrate (Brovana (Restricted To Pulmonology/Resp) -) 1 amp NEB RBID [facility] Last Admin: 08/20/18 07:51 Dose: 1 amp Diltiazem HCl (Cardizem Cd -) 240 mg PO DAILY [facility] Last Admin: 08/20/18 09:13 Dose: 240 mg Docusate Sodium (Colace -) 100 mg PO BID [facility] Last Admin: 08/20/18 09:13 Dose: 100 mg Emollient Ointment (Aquaphor -) 1 applic TP Q12H PRN PRN Reason: DRYNESS Furosemide (Lasix -) 40 mg PO DAILY [facility] Last Admin: 08/20/18 09:13 Dose: 40 mg Gabapentin (Neurontin -) 300 mg PO TID [facility] Last Admin: 08/20/18 08:35 Dose: 300 mg Guaifenesin (Robitussin -) 10 ml PO Q6H PRN PRN Reason: COUGHING Last Admin: 08/20/18 09:28 Dose: 10 ml Aztreonam 1 gm/ Dextrose 50 mls @ 100 mls/hr IVPB BID [facility]; Protocol Last Admin: 08/20/18 09:13 Dose: 100 mls/hr Clindamycin Phosphate (Cleocin 300 Mg Premix Ivpb) 300 mg in 50 mls @ 100 mls/ hr IVPB Q8H-IV [facility]; Protocol Last Admin: 08/20/18 09:44 Dose: 100 mls/hr Insulin Aspart (Novolog Vial Sliding Scale -) 1 vial SQ ACHS [facility]; Protocol Last Admin: 08/20/18 06:04 Dose: Not Given Methylprednisolone Sodium Succinate (Solu-Medrol -) 60 mg IVPUSH Q8H-IV [facility] Last Admin: 08/20/18 09:14 Dose: 60 mg Ranitidine HCl (Zantac -) 150 mg PO DAILY [facility] Last Admin: 08/20/18 09:13 Dose: 150 mg Sitagliptin Phosphate (Januvia -) 25 mg PO DAILY@0700 [facility] Last Admin: 08/20/18 06:06 Dose: Not Given Tiotropium [place] (Spiriva Respimat) 2 puff IH DAILY [facility] Last Admin: 08/20/18 09:21 Dose: 2 puff Constitutional: Yes: No Distress HENT: Yes: Atraumatic Neck: Yes: Supple Cardiovascular: Yes: Regular Rate and Rhythm Respiratory: Yes: Bilateral scattered Rhonchi & wheeze Gastrointestinal: Yes: Normal Bowel Sounds Extremities: Yes: WNL Edema: No Peripheral Pulses WNL: Yes Neurological: Yes: Alert, Oriented Labs: Laboratory Results - last 24 hr 08/20/18 08/20/18 06:00 06:00 WBC 14.2 H RBC 5.12 Hgb 15.4 H Hct 48.1 H MCV 94.1 MCH 30.1 MCHC 31.9 L RDW 14.7 Plt Count 235 MPV 8.4 Sodium 135 L Potassium 4.5 Chloride 98 Carbon Dioxide 28 Anion Gap 10 BUN 51 H Creatinine 2.0 H Creat Clearance w eGFR 24.70 Random Glucose 544 H* Calcium 9.6 Problem List - Problems (1) Bronchitis Code(s): J40 - BRONCHITIS, NOT SPECIFIED ACUTE OR CHRONIC (2) CKD (chronic kidney disease) Code(s): N18.9 - CHRONIC KIDNEY DISEASE, UNSPECIFIED Qualifiers: Chronic kidney disease stage: stage 3 (moderate) Qualified Code(s): N18.3 - Chronic kidney disease, stage 3 (moderate) (3) COPD exacerbation Code(s): J44.1 - CHRONIC OBSTRUCTIVE PULMONARY DISEASE W (ACUTE) EXACERBATION (4) Diabetes Code(s): E11.9 - TYPE 2 DIABETES MELLITUS WITHOUT COMPLICATIONS (5) ASHD (arteriosclerotic heart disease) Code(s): I25.10 - ATHSCL HEART DISEASE OF [place] CORONARY ARTERY W/O ANG PCTRS (6) Tobacco abuse Code(s): Z72.0 - TOBACCO USE (7) Tobacco abuse counseling Code(s): Z71.6 - TOBACCO ABUSE COUNSELING (8) Acute hypercapnic respiratory failure Code(s): J96.02 - ACUTE RESPIRATORY FAILURE WITH HYPERCAPNIA IMP ACUTE COPD EXACERBATION LIKELY URI ASHD S/P [place] CKD H/O DVT HYPERGLYCEMIA TOBACCO ABUSE LIKELY OSAS PLAN IV STEROIDS INHALED BRONCHODILATORS ABX SPUTUM C+S GLYCEMIC CONTROL: PATIENT REFUSING DESPITE REVIEWING THE RISK AND BENEFITS PFTS OUTPATIENT O2 SAT AT REST AND EXERCISE ON RA TO DETERMINE IF PT IS A CANDIDATE FOR HOME O2 WILL NEED FORMAL SLEEP WORKUP AFTER D/C SMOKING CESSATION DR ARTHUR
[2018-08-20] MEDS: ALBUTEROL SO4 0.083% IH SOL 2.5 MG/3 ML VIAL.NEB. NEB PRN (14:22)
--- NOTE | 2018-08-20 14:24 | PN ---
Progress Note, Physician History of Present Illness: still continues to cough still congested - Current Medication List Current Medications: Active Medications Albuterol Sulfate (Ventolin 0.083% Nebulizer Soln -) 1 amp NEB Q4H PRN PRN Reason: SHORT OF BREATH/WHEEZING Last Admin: 08/20/18 14:22 Dose: 1 amp Apixaban (Eliquis -) 5 mg PO BID [facility] Last Admin: 08/20/18 09:13 Dose: 5 mg Arformoterol Tartrate (Brovana (Restricted To Pulmonology/Resp) -) 1 amp NEB RBID [facility] Last Admin: 08/20/18 07:51 Dose: 1 amp Diltiazem HCl (Cardizem Cd -) 240 mg PO DAILY [facility] Last Admin: 08/20/18 09:13 Dose: 240 mg Docusate Sodium (Colace -) 100 mg PO BID [facility] Last Admin: 08/20/18 09:13 Dose: 100 mg Emollient Ointment (Aquaphor -) 1 applic TP Q12H PRN PRN Reason: DRYNESS Furosemide (Lasix -) 40 mg PO DAILY [facility] Last Admin: 08/20/18 09:13 Dose: 40 mg Gabapentin (Neurontin -) 300 mg PO TID [facility] Last Admin: 08/20/18 08:35 Dose: 300 mg Guaifenesin (Robitussin -) 10 ml PO Q6H PRN PRN Reason: COUGHING Last Admin: 08/20/18 09:28 Dose: 10 ml Aztreonam 1 gm/ Dextrose 50 mls @ 100 mls/hr IVPB BID [facility]; Protocol Last Admin: 08/20/18 09:13 Dose: 100 mls/hr Clindamycin Phosphate (Cleocin 300 Mg Premix Ivpb) 300 mg in 50 mls @ 100 mls/ hr IVPB Q8H-IV [facility]; Protocol Last Admin: 08/20/18 09:44 Dose: 100 mls/hr Insulin Aspart (Novolog Vial Sliding Scale -) 1 vial SQ ACHS [facility]; Protocol Last Admin: 08/20/18 13:47 Dose: Not Given Methylprednisolone Sodium Succinate (Solu-Medrol -) 60 mg IVPUSH Q8H-IV [facility] Last Admin: 08/20/18 09:14 Dose: 60 mg Ranitidine HCl (Zantac -) 150 mg PO DAILY [facility] Last Admin: 08/20/18 09:13 Dose: 150 mg Sitagliptin Phosphate (Januvia -) 25 mg PO DAILY@0700 [facility] Last Admin: 08/20/18 06:06 Dose: Not Given Tiotropium [place] (Spiriva Respimat) 2 puff IH DAILY [facility] Last Admin: 08/20/18 09:21 Dose: 2 puff - Objective Vital Signs: Vital Signs Temperature 97.9 F 08/20/18 06:47 Pulse Rate 64 08/20/18 06:47 Respiratory Rate 20 08/20/18 09:00 Blood Pressure 144/77 08/20/18 06:47 O2 Sat by Pulse Oximetry (%) 99 08/20/18 09:00 Constitutional: Yes: Calm, Mild Distress, Obese Cardiovascular: Yes: Regular Rate and Rhythm Respiratory: Yes: On Nasal O2, Poor Air Entry, Rhonchi, Other Gastrointestinal: Yes: Normal Bowel Sounds, Soft Musculoskeletal: Yes: WNL Extremities: Yes: WNL Neurological: Yes: Alert, Oriented Psychiatric: Yes: Alert, Oriented Labs: CBC, BMP 08/20/18 06:00 08/20/18 06:00 Assessment/Plan - Problems (1) COPD exacerbation Code(s): J44.1 - CHRONIC OBSTRUCTIVE PULMONARY DISEASE W (ACUTE) EXACERBATION (2) PNA (pneumonia) Code(s): J18.9 - PNEUMONIA, UNSPECIFIED ORGANISM Qualifiers: Pneumonia type: due to unspecified organism Laterality: unspecified laterality Lung location: unspecified part of lung Qualified Code(s): J18.9 - Pneumonia, unspecified organism (3) CKD (chronic kidney disease) Code(s): N18.9 - CHRONIC KIDNEY DISEASE, UNSPECIFIED Qualifiers: Chronic kidney disease stage: stage 3 (moderate) Qualified Code(s): N18.3 - Chronic kidney disease, stage 3 (moderate) plan ct abx resp support incentive brianna rest as per the team as per pul
--- NOTE | 2018-08-20 16:54 | PN ---
Progress Note, Physician - Current Medication List Current Medications: Active Medications Albuterol Sulfate (Ventolin 0.083% Nebulizer Soln -) 1 amp NEB Q4H PRN PRN Reason: SHORT OF BREATH/WHEEZING Last Admin: 08/20/18 14:22 Dose: 1 amp Apixaban (Eliquis -) 5 mg PO BID [facility] Last Admin: 08/20/18 09:13 Dose: 5 mg Arformoterol Tartrate (Brovana (Restricted To Pulmonology/Resp) -) 1 amp NEB RBID [facility] Last Admin: 08/20/18 07:51 Dose: 1 amp Diltiazem HCl (Cardizem Cd -) 240 mg PO DAILY [facility] Last Admin: 08/20/18 09:13 Dose: 240 mg Docusate Sodium (Colace -) 100 mg PO BID [facility] Last Admin: 08/20/18 09:13 Dose: 100 mg Emollient Ointment (Aquaphor -) 1 applic TP Q12H PRN PRN Reason: DRYNESS Furosemide (Lasix -) 40 mg PO DAILY [facility] Last Admin: 08/20/18 09:13 Dose: 40 mg Gabapentin (Neurontin -) 300 mg PO TID [facility] Last Admin: 08/20/18 14:26 Dose: 300 mg Guaifenesin (Robitussin -) 10 ml PO Q6H PRN PRN Reason: COUGHING Last Admin: 08/20/18 09:28 Dose: 10 ml Aztreonam 1 gm/ Dextrose 50 mls @ 100 mls/hr IVPB BID [facility]; Protocol Last Admin: 08/20/18 09:13 Dose: 100 mls/hr Clindamycin Phosphate (Cleocin 300 Mg Premix Ivpb) 300 mg in 50 mls @ 100 mls/ hr IVPB Q8H-IV [facility]; Protocol Last Admin: 08/20/18 09:44 Dose: 100 mls/hr Insulin Aspart (Novolog Vial Sliding Scale -) 1 vial SQ ACHS [facility]; Protocol Last Admin: 08/20/18 13:47 Dose: Not Given Methylprednisolone Sodium Succinate (Solu-Medrol -) 60 mg IVPUSH Q8H-IV [facility] Last Admin: 08/20/18 09:14 Dose: 60 mg Ranitidine HCl (Zantac -) 150 mg PO DAILY [facility] Last Admin: 08/20/18 09:13 Dose: 150 mg Sitagliptin Phosphate (Januvia -) 25 mg PO DAILY@0700 [facility] Last Admin: 08/20/18 06:06 Dose: Not Given Tiotropium [place] (Spiriva Respimat) 2 puff IH DAILY [facility] Last Admin: 08/20/18 09:21 Dose: 2 puff - Objective Vital Signs: Vital Signs Temperature 97.6 F 08/20/18 15:22 Pulse Rate 87 08/20/18 15:22 Respiratory Rate 18 08/20/18 15:22 Blood Pressure 135/67 08/20/18 15:22 O2 Sat by Pulse Oximetry (%) 99 08/20/18 09:00 Constitutional: Yes: No Distress HENT: Yes: Atraumatic Cardiovascular: Yes: Regular Rate and Rhythm Respiratory: Yes: Rhonchi Gastrointestinal: Yes: Normal Bowel Sounds Extremities: Yes: WNL Edema: No Peripheral Pulses WNL: Yes Labs: CBC, BMP 08/20/18 06:00 08/20/18 06:00 Problem List - Problems (1) COPD exacerbation Code(s): J44.1 - CHRONIC OBSTRUCTIVE PULMONARY DISEASE W (ACUTE) EXACERBATION (2) PNA (pneumonia) Code(s): J18.9 - PNEUMONIA, UNSPECIFIED ORGANISM Qualifiers: Pneumonia type: due to unspecified organism Laterality: unspecified laterality Lung location: unspecified part of lung Qualified Code(s): J18.9 - Pneumonia, unspecified organism (3) Diabetes Code(s): E11.9 - TYPE 2 DIABETES MELLITUS WITHOUT COMPLICATIONS (4) ASHD (arteriosclerotic heart disease) Code(s): I25.10 - ATHSCL HEART DISEASE OF [place] CORONARY ARTERY W/O ANG PCTRS (5) CKD (chronic kidney disease) Code(s): N18.9 - CHRONIC KIDNEY DISEASE, UNSPECIFIED Qualifiers: Chronic kidney disease stage: stage 3 (moderate) Qualified Code(s): N18.3 - Chronic kidney disease, stage 3 (moderate) (6) Tobacco abuse Code(s): Z72.0 - TOBACCO USE Assessment/Plan patient is refusing to take any medication for diabetes including insulin, i spoke to her in detail about it
[2018-08-21] MEDS ORDERED: PT OWN MED DRAWER 7, Y5N ONE ×2 (01:24→09:06)
[2018-08-21] MEDS: CLINDAMYCIN 300 MG PREMIX IVPB 300 MG/50 ML BAG IVPB SCH ×2 (02:10→09:14)
[2018-08-21] MEDS: INSULIN SLIDING SCALE (NOVOLOG) 1 VIAL SQ SCH ×4 (06:13→21:32)
[2018-08-21] MEDS: sitaGLIPtin PHOSPHATE 25 MG TABLET (FP) PO SCH (06:13)
[2018-08-21] MEDS: GABAPENTIN 300 MG CAPSULE (FP) PO SCH ×3 (06:19→21:30)
[2018-08-21] MEDS: guaiFENesin 200 MG/10 ML 10 ML UNIT-DOSE CUPS PO PRN ×2 (07:03→21:58)
[2018-08-21] MEDS: ARFORMOTEROL TARTRATE 15 MCG/2 ML VIAL NEB SCH ×2 (07:39→20:48)
[2018-08-21] MEDS: APIXABAN 5 MG TABLET PO SCH ×2 (09:15→21:30)
[2018-08-21] MEDS: DOCUSATE SODIUM 100 MG CAPSULE (FP) PO SCH ×2 (09:15→21:30)
[2018-08-21] MEDS: RANITIDINE HCL 150 MG TABLET (FP) PO SCH (09:15)
[2018-08-21] MEDS: methylPREDNISolone NA SUCC 40 MG/1 ML VIAL IVPUSH SCH (09:15)
[2018-08-21] MEDS: FUROSEMIDE 40 MG TABLET (FP) PO SCH (09:15)
[2018-08-21] MEDS: TIOTROPIUM BROMIDE 2.5 MCG (SPIRIVA) RESPIMAT INHALER IH SCH (09:16)
[2018-08-21] MEDS: AZTREONAM 1 GM in DEXTROSE 5%-WATER - 50 ML IVPB SCH (11:09)
[2018-08-21] MEDS: ALBUTEROL SO4 0.083% IH SOL 2.5 MG/3 ML VIAL.NEB. NEB PRN (11:21)
--- NOTE | 2018-08-21 14:34 | PN ---
Progress Note (short form) - Note Progress Note: PULMONARY CONGESTED COUGH/SOB VSS/AFEBRILE ANICTERIC B/L WHEEZE S1S2 BS+ NO EDEMA LABS/MEDS/NOTES/IMAGES REVIEWED ACUTE COPD EXACERBATION LIKELY URI ASHD S/P [place] H/O DVT HYPERGLYCEMIA TOBACCO ABUSE LIKELY OSAS PLAN IV STEROIDS TO TAPER INHALED BRONCHODILATORS ABX GLYCEMIC CONTROL: PATIENT REFUSING DESPITE REVIEWING THE RISK AND BENEFITS PFTS OUTPATIENT O2 SAT AT REST AND EXERCISE ON RA TO DETERMINE IF PT IS A CANDIDATE FOR HOME O2 WILL NEED FORMAL SLEEP WORKUP AFTER D/C SMOKING CESSATION Connie TRUJILLO MD
--- NOTE | 2018-08-21 14:45 | PN ---
Progress Note, Physician History of Present Illness: patient stable still with ronchi no issues otherwiise - Current Medication List Current Medications: Active Medications Albuterol Sulfate (Ventolin 0.083% Nebulizer Soln -) 1 amp NEB Q4H PRN PRN Reason: SHORT OF BREATH/WHEEZING Last Admin: 08/21/18 11:21 Dose: 1 amp Apixaban (Eliquis -) 5 mg PO BID [facility] Last Admin: 08/21/18 09:15 Dose: 5 mg Arformoterol Tartrate (Brovana (Restricted To Pulmonology/Resp) -) 1 amp NEB RBID [facility] Last Admin: 08/21/18 07:39 Dose: 1 amp Diltiazem HCl (Cardizem Cd -) 240 mg PO DAILY [facility] Last Admin: 08/21/18 09:15 Dose: 240 mg Docusate Sodium (Colace -) 100 mg PO BID [facility] Last Admin: 08/21/18 09:15 Dose: 100 mg Emollient Ointment (Aquaphor -) 1 applic TP Q12H PRN PRN Reason: DRYNESS Furosemide (Lasix -) 40 mg PO DAILY [facility] Last Admin: 08/21/18 09:15 Dose: 40 mg Gabapentin (Neurontin -) 300 mg PO TID [facility] Last Admin: 08/21/18 14:00 Dose: 300 mg Guaifenesin (Robitussin -) 10 ml PO Q6H PRN PRN Reason: COUGHING Last Admin: 08/21/18 07:03 Dose: 10 ml Aztreonam 1 gm/ Dextrose 50 mls @ 100 mls/hr IVPB BID [facility]; Protocol Last Admin: 08/21/18 11:09 Dose: 100 mls/hr Clindamycin Phosphate (Cleocin 300 Mg Premix Ivpb) 300 mg in 50 mls @ 100 mls/ hr IVPB Q8H-IV [facility]; Protocol Last Admin: 08/21/18 09:14 Dose: 100 mls/hr Insulin Aspart (Novolog Vial Sliding Scale -) 1 vial SQ ACHS [facility]; Protocol Last Admin: 08/21/18 13:51 Dose: Not Given Methylprednisolone Sodium Succinate (Solu-Medrol -) 40 mg IVPUSH BID [facility] Last Admin: 08/21/18 09:15 Dose: 40 mg Ranitidine HCl (Zantac -) 150 mg PO DAILY [facility] Last Admin: 08/21/18 09:15 Dose: 150 mg Sitagliptin Phosphate (Januvia -) 25 mg PO DAILY@0700 [facility] Last Admin: 08/21/18 06:13 Dose: Not Given Tiotropium [place] (Spiriva Respimat) 2 puff IH DAILY [facility] Last Admin: 08/21/18 09:16 Dose: 2 puff - Objective Vital Signs: Vital Signs Temperature 97.4 F L 08/21/18 06:00 Pulse Rate 78 08/21/18 06:00 Respiratory Rate 18 08/21/18 06:00 Blood Pressure 130/63 08/21/18 06:00 O2 Sat by Pulse Oximetry (%) 97 08/20/18 21:00 Constitutional: Yes: No Distress, Calm Cardiovascular: Yes: Regular Rate and Rhythm Respiratory: Yes: Regular, Poor Air Entry, Rhonchi Gastrointestinal: Yes: Normal Bowel Sounds, Soft Musculoskeletal: Yes: WNL Extremities: Yes: WNL Neurological: Yes: Alert, Oriented Psychiatric: Yes: Alert, Oriented Labs: CBC, BMP 08/20/18 06:00 08/21/18 12:27 Assessment/Plan - Problems (1) COPD exacerbation Code(s): J44.1 - CHRONIC OBSTRUCTIVE PULMONARY DISEASE W (ACUTE) EXACERBATION (2) PNA (pneumonia) Code(s): J18.9 - PNEUMONIA, UNSPECIFIED ORGANISM Qualifiers: Pneumonia type: due to unspecified organism Laterality: unspecified laterality Lung location: unspecified part of lung Qualified Code(s): J18.9 - Pneumonia, unspecified organism (3) CKD (chronic kidney disease) Code(s): N18.9 - CHRONIC KIDNEY DISEASE, UNSPECIFIED Qualifiers: Chronic kidney disease stage: stage 3 (moderate) Qualified Code(s): N18.3 - Chronic kidney disease, stage 3 (moderate) plan ct abx will change to oral clinda for 5 days rest as per the team incentive brianna
--- NOTE | 2018-08-21 17:27 | DS ---
Physical Examination Vital Signs: Vital Signs Temperature 98.4 F 08/21/18 15:14 Pulse Rate 92 H 08/21/18 15:14 Respiratory Rate 18 08/21/18 15:14 Blood Pressure 115/74 08/21/18 15:14 O2 Sat by Pulse Oximetry (%) 97 08/21/18 09:00 Constitutional: Yes: No Distress HENT: Yes: Atraumatic Neck: Yes: Supple Cardiovascular: Yes: Regular Rate and Rhythm Respiratory: Yes: Rhonchi Gastrointestinal: Yes: Normal Bowel Sounds Extremities: Yes: WNL Edema: No Peripheral Pulses WNL: Yes Neurological: Yes: Alert, Oriented Labs: CBC, BMP 08/20/18 06:00 08/21/18 12:27 Discharge Summary Reason For Visit: COMMUNITY ACQUIRED PNEUMONIA Current Active Problems ASHD (arteriosclerotic heart disease) (Acute) Acute hypercapnic respiratory failure (Acute) Bronchitis (Acute) CKD (chronic kidney disease) (Acute) COPD exacerbation (Acute) Diabetes (Acute) PNA (pneumonia) (Acute) Tobacco abuse (Acute) Tobacco abuse counseling (Acute) - Instructions Referrals: Gabriel Guthrie [Primary Care Provider] - - Home Medications Comprehensive Discharge Medication List: Ambulatory Orders Albuterol 0.083% Nebulizer [place] [Ventolin 0.083% Nebulizer Soln -] 1 amp NEB TID 08/17/18 Apixaban [Eliquis] 5 mg PO BID 08/17/18 Diltiazem Cd [Cardizem Cd -] 240 mg PO DAILY 08/17/18 Docusate Sodium [Colace] 100 mg PO BID 08/17/18 Furosemide [Lasix] 40 mg PO DAILY 08/17/18 Gabapentin 400 mg PO HS 08/17/18 Gabapentin [Neurontin -] 300 mg PO Q8H 08/17/18 Linagliptin [Tradjenta] 5 mg PO DAILY 08/17/18 Ranitidine [Zantac -] 150 mg PO DAILY 08/17/18 Tiotropium [place] [Spiriva] 1 inh PO DAILY 08/17/18 Clindamycin [Cleocin -] 300 mg PO Q6HPO #20 capsule 08/20/18 Prednisone 10 mg PO ASDIR #30 tablet 08/20/18
--- NOTE | 2018-08-21 17:48 | PN ---
Progress Note, Physician - Current Medication List Current Medications: Active Medications Albuterol Sulfate (Ventolin 0.083% Nebulizer Soln -) 1 amp NEB Q4H PRN PRN Reason: SHORT OF BREATH/WHEEZING Last Admin: 08/21/18 11:21 Dose: 1 amp Apixaban (Eliquis -) 5 mg PO BID [facility] Last Admin: 08/21/18 09:15 Dose: 5 mg Arformoterol Tartrate (Brovana (Restricted To Pulmonology/Resp) -) 1 amp NEB RBID [facility] Last Admin: 08/21/18 07:39 Dose: 1 amp Clindamycin HCl (Cleocin -) 300 mg PO TID [facility] Diltiazem HCl (Cardizem Cd -) 240 mg PO DAILY [facility] Last Admin: 08/21/18 09:15 Dose: 240 mg Docusate Sodium (Colace -) 100 mg PO BID [facility] Last Admin: 08/21/18 09:15 Dose: 100 mg Emollient Ointment (Aquaphor -) 1 applic TP Q12H PRN PRN Reason: DRYNESS Furosemide (Lasix -) 40 mg PO DAILY [facility] Last Admin: 08/21/18 09:15 Dose: 40 mg Gabapentin (Neurontin -) 300 mg PO TID [facility] Last Admin: 08/21/18 14:00 Dose: 300 mg Guaifenesin (Robitussin -) 10 ml PO Q6H PRN PRN Reason: COUGHING Last Admin: 08/21/18 07:03 Dose: 10 ml Insulin Aspart (Novolog Vial Sliding Scale -) 1 vial SQ ACHS [facility]; Protocol Last Admin: 08/21/18 13:51 Dose: Not Given Methylprednisolone Sodium Succinate (Solu-Medrol -) 40 mg IVPUSH BID [facility] Last Admin: 08/21/18 09:15 Dose: 40 mg Ranitidine HCl (Zantac -) 150 mg PO DAILY [facility] Last Admin: 08/21/18 09:15 Dose: 150 mg Sitagliptin Phosphate (Januvia -) 25 mg PO DAILY@0700 [facility] Last Admin: 08/21/18 06:13 Dose: Not Given Tiotropium [place] (Spiriva Respimat) 2 puff IH DAILY [facility] Last Admin: 08/21/18 09:16 Dose: 2 puff - Objective Vital Signs: Vital Signs Temperature 98.4 F 08/21/18 15:14 Pulse Rate 92 H 08/21/18 15:14 Respiratory Rate 18 08/21/18 15:14 Blood Pressure 115/74 08/21/18 15:14 O2 Sat by Pulse Oximetry (%) 97 08/21/18 09:00 Constitutional: Yes: No Distress HENT: Yes: Atraumatic Neck: Yes: Supple Cardiovascular: Yes: Regular Rate and Rhythm Respiratory: Yes: Rhonchi Gastrointestinal: Yes: Normal Bowel Sounds Extremities: Yes: WNL Neurological: Yes: Alert, Oriented Labs: CBC, BMP 08/20/18 06:00 08/21/18 12:27 Problem List - Problems (1) COPD exacerbation Assessment/Plan: duo nebs iv steroids if needed Code(s): J44.1 - CHRONIC OBSTRUCTIVE PULMONARY DISEASE W (ACUTE) EXACERBATION (2) PNA (pneumonia) Assessment/Plan: on abx id consult Code(s): J18.9 - PNEUMONIA, UNSPECIFIED ORGANISM Qualifiers: Pneumonia type: due to unspecified organism Laterality: unspecified laterality Lung location: unspecified part of lung Qualified Code(s): J18.9 - Pneumonia, unspecified organism (3) Diabetes Assessment/Plan: on meds bgms Code(s): E11.9 - TYPE 2 DIABETES MELLITUS WITHOUT COMPLICATIONS (4) ASHD (arteriosclerotic heart disease) Code(s): I25.10 - ATHSCL HEART DISEASE OF [place] CORONARY ARTERY W/O ANG PCTRS (5) CKD (chronic kidney disease) Code(s): N18.9 - CHRONIC KIDNEY DISEASE, UNSPECIFIED Qualifiers: Chronic kidney disease stage: stage 3 (moderate) Qualified Code(s): N18.3 - Chronic kidney disease, stage 3 (moderate) (6) Tobacco abuse Code(s): Z72.0 - TOBACCO USE Assessment/Plan patient is refusing to take any medication for diabetes including insulin, i spoke to her in detail about it today she agree to take insulinand po meds dc planning for friday
[2018-08-21] MEDS ORDERED: predniSONE 20 MG TABLET (UD) PO SCH (17:51)
[2018-08-21] MEDS ORDERED: INSULIN (NOVOLOG) ASPART 100 UNITS/ML 10ML VIAL ONE ×2 (18:06→21:22)
[2018-08-21] MEDS: CLINDAMYCIN HCL 150 MG CAPSULE (FP) PO SCH (21:30)
[2018-08-22] MEDS: guaiFENesin 200 MG/10 ML 10 ML UNIT-DOSE CUPS PO PRN ×2 (06:24→21:19)
[2018-08-22] MEDS: INSULIN SLIDING SCALE (NOVOLOG) 1 VIAL SQ SCH ×4 (06:45→21:04)
[2018-08-22] MEDS: sitaGLIPtin PHOSPHATE 25 MG TABLET (FP) PO SCH (06:45)
[2018-08-22] MEDS: ALBUTEROL SO4 0.083% IH SOL 2.5 MG/3 ML VIAL.NEB. NEB PRN (07:50)
[2018-08-22] MEDS: ARFORMOTEROL TARTRATE 15 MCG/2 ML VIAL NEB SCH ×2 (07:50→20:38)
[2018-08-22] MEDS: CLINDAMYCIN HCL 150 MG CAPSULE (FP) PO SCH ×3 (08:25→21:02)
[2018-08-22] MEDS: GABAPENTIN 300 MG CAPSULE (FP) PO SCH ×3 (08:25→21:04)
[2018-08-22] MEDS ORDERED: PT OWN MED DRAWER 7, Y5N ONE (10:00)
[2018-08-22] MEDS ORDERED: predniSONE 20 MG TABLET (UD) PO SCH (10:00)
[2018-08-22] MEDS: FUROSEMIDE 40 MG TABLET (FP) PO SCH (10:07)
[2018-08-22] MEDS: RANITIDINE HCL 150 MG TABLET (FP) PO SCH (10:07)
[2018-08-22] MEDS: APIXABAN 5 MG TABLET PO SCH ×2 (10:07→21:03)
[2018-08-22] MEDS: DOCUSATE SODIUM 100 MG CAPSULE (FP) PO SCH ×2 (10:07→21:03)
[2018-08-22] MEDS: TIOTROPIUM BROMIDE 2.5 MCG (SPIRIVA) RESPIMAT INHALER IH SCH (10:08)
--- NOTE | 2018-08-22 10:33 | PN ---
Progress Note, Physician - Current Medication List Current Medications: Active Medications Albuterol Sulfate (Ventolin 0.083% Nebulizer Soln -) 1 amp NEB Q4H PRN PRN Reason: SHORT OF BREATH/WHEEZING Last Admin: 08/22/18 07:50 Dose: 1 amp Apixaban (Eliquis -) 5 mg PO BID [facility] Last Admin: 08/22/18 10:07 Dose: 5 mg Arformoterol Tartrate (Brovana (Restricted To Pulmonology/Resp) -) 1 amp NEB RBID [facility] Last Admin: 08/22/18 07:50 Dose: 1 amp Clindamycin HCl (Cleocin -) 300 mg PO TID [facility] Last Admin: 08/22/18 08:25 Dose: 300 mg Diltiazem HCl (Cardizem Cd -) 240 mg PO DAILY [facility] Last Admin: 08/22/18 10:07 Dose: 240 mg Docusate Sodium (Colace -) 100 mg PO BID [facility] Last Admin: 08/22/18 10:07 Dose: 100 mg Emollient Ointment (Aquaphor -) 1 applic TP Q12H PRN PRN Reason: DRYNESS Furosemide (Lasix -) 40 mg PO DAILY [facility] Last Admin: 08/22/18 10:07 Dose: 40 mg Gabapentin (Neurontin -) 300 mg PO TID [facility] Last Admin: 08/22/18 08:25 Dose: 300 mg Guaifenesin (Robitussin -) 10 ml PO Q6H PRN PRN Reason: COUGHING Last Admin: 08/22/18 06:24 Dose: 10 ml Insulin Aspart (Novolog Vial Sliding Scale -) 1 vial SQ [facility]; Protocol Last Admin: 08/22/18 06:45 Dose: Not Given Prednisone (Deltasone -) 40 mg PO DAILY [facility] Last Admin: 08/22/18 10:07 Dose: 40 mg Ranitidine HCl (Zantac -) 150 mg PO DAILY [facility] Last Admin: 08/22/18 10:07 Dose: 150 mg Sitagliptin Phosphate (Januvia -) 25 mg PO DAILY@0700 [facility] Last Admin: 08/22/18 06:45 Dose: Not Given Tiotropium [place] (Spiriva Respimat) 2 puff IH DAILY [facility] Last Admin: 08/22/18 10:08 Dose: 2 puff - Objective Vital Signs: Vital Signs Temperature 98.6 F 10/20/18 06:00 Pulse Rate 80 08/22/18 06:00 Respiratory Rate 20 08/22/18 06:00 Blood Pressure 154/81 08/22/18 06:00 O2 Sat by Pulse Oximetry (%) 97 08/21/18 21:00 Labs: CBC, BMP 08/20/18 06:00 08/21/18 12:27
--- NOTE | 2018-08-22 14:27 | PN ---
Progress Note, Physician History of Present Illness: pulmonary alert,less dyspneic,still congested - Current Medication List Current Medications: Active Medications Albuterol Sulfate (Ventolin 0.083% Nebulizer Soln -) 1 amp NEB Q4H PRN PRN Reason: SHORT OF BREATH/WHEEZING Last Admin: 08/22/18 07:50 Dose: 1 amp Apixaban (Eliquis -) 5 mg PO BID [facility] Last Admin: 08/22/18 10:07 Dose: 5 mg Arformoterol Tartrate (Brovana (Restricted To Pulmonology/Resp) -) 1 amp NEB RBID [facility] Last Admin: 08/22/18 07:50 Dose: 1 amp Clindamycin HCl (Cleocin -) 300 mg PO TID [facility] Last Admin: 08/22/18 13:36 Dose: 300 mg Diltiazem HCl (Cardizem Cd -) 240 mg PO DAILY [facility] Last Admin: 08/22/18 10:07 Dose: 240 mg Docusate Sodium (Colace -) 100 mg PO BID [facility] Last Admin: 08/22/18 10:07 Dose: 100 mg Emollient Ointment (Aquaphor -) 1 applic TP Q12H PRN PRN Reason: DRYNESS Furosemide (Lasix -) 40 mg PO DAILY [facility] Last Admin: 08/22/18 10:07 Dose: 40 mg Gabapentin (Neurontin -) 300 mg PO TID [facility] Last Admin: 08/22/18 13:36 Dose: 300 mg Guaifenesin (Robitussin -) 10 ml PO Q6H PRN PRN Reason: COUGHING Last Admin: 08/22/18 06:24 Dose: 10 ml Insulin Aspart (Novolog Vial Sliding Scale -) 1 vial SQ ACHS [facility]; Protocol Last Admin: 08/22/18 12:07 Dose: 14 units Prednisone (Deltasone -) 40 mg PO DAILY [facility] Last Admin: 08/22/18 10:07 Dose: 40 mg Ranitidine HCl (Zantac -) 150 mg PO DAILY [facility] Last Admin: 08/22/18 10:07 Dose: 150 mg Sitagliptin Phosphate (Januvia -) 25 mg PO DAILY@0700 [facility] Last Admin: 08/22/18 06:45 Dose: Not Given Tiotropium [place] (Spiriva Respimat) 2 puff IH DAILY [facility] Last Admin: 08/22/18 10:08 Dose: 2 puff - Objective Vital Signs: Vital Signs Temperature 98.6 F 08/22/18 06:00 Pulse Rate 80 08/22/18 06:00 Respiratory Rate 20 08/22/18 06:00 Blood Pressure 154/81 08/22/18 06:00 O2 Sat by Pulse Oximetry (%) 97 08/21/18 21:00 Constitutional: Yes: Calm, Obese Eyes: Yes: WNL HENT: Yes: WNL Neck: Yes: WNL Cardiovascular: Yes: Regular Rate and Rhythm, S1, S2 Respiratory: Yes: Rhonchi (scattered keshawn rhonchi) Gastrointestinal: Yes: Normal Bowel Sounds, Soft Extremities: Yes: WNL Edema: No Labs: CBC, BMP Problem List - Problems (1) Bronchitis Code(s): J40 - BRONCHITIS, NOT SPECIFIED ACUTE OR CHRONIC (2) CKD (chronic kidney disease) Code(s): N18.9 - CHRONIC KIDNEY DISEASE, UNSPECIFIED Qualifiers: Chronic kidney disease stage: stage 3 (moderate) Qualified Code(s): N18.3 - Chronic kidney disease, stage 3 (moderate) (3) COPD exacerbation Code(s): J44.1 - CHRONIC OBSTRUCTIVE PULMONARY DISEASE W (ACUTE) EXACERBATION (4) Diabetes Code(s): E11.9 - TYPE 2 DIABETES MELLITUS WITHOUT COMPLICATIONS (5) ASHD (arteriosclerotic heart disease) Code(s): I25.10 - ATHSCL HEART DISEASE OF [place] CORONARY ARTERY W/O ANG PCTRS (6) Tobacco abuse Code(s): Z72.0 - TOBACCO USE (7) Tobacco abuse counseling Code(s): Z71.6 - TOBACCO ABUSE COUNSELING (8) Acute hypercapnic respiratory failure Code(s): J96.02 - ACUTE RESPIRATORY FAILURE WITH HYPERCAPNIA Assessment/Plan IMP ACUTE HYPERCAPNEIC RESPIRATORY FAILURE COPD EXACERBATION LIKELY URI ASHD S/P PR CKD H/O DVT HYPERGLYCEMIA TOBACCO ABUSE PLAN PREDNISONE INHALED BRONCHODILATORS ABX GLYCEMIC CONTROL PFTS OUTPATIENT O2 SAT AT REST AND EXERCISE ON RA TO DETERMINE IF PT IS A CANDIDATE FOR HOME O2 OUTPATIENT SLEEP STUDIES DR WILLIAMSON Problem List - Problems (1) Bronchitis Code(s): J40 - BRONCHITIS, NOT SPECIFIED ACUTE OR CHRONIC (2) CKD (chronic kidney disease) Code(s): N18.9 - CHRONIC KIDNEY DISEASE, UNSPECIFIED Qualifiers: Chronic kidney disease stage: stage 3 (moderate) Qualified Code(s): N18.3 - Chronic kidney disease, stage 3 (moderate) (3) COPD exacerbation Code(s): J44.1 - CHRONIC OBSTRUCTIVE PULMONARY DISEASE W (ACUTE) EXACERBATION (4) Diabetes Code(s): E11.9 - TYPE 2 DIABETES MELLITUS WITHOUT COMPLICATIONS (5) ASHD (arteriosclerotic heart disease) Code(s): I25.10 - ATHSCL HEART DISEASE OF [place] CORONARY ARTERY W/O ANG PCTRS (6) Tobacco abuse Code(s): Z72.0 - TOBACCO USE (7) Tobacco abuse counseling Code(s): Z71.6 - TOBACCO ABUSE COUNSELING (8) Acute hypercapnic respiratory failure Code(s): J96.02 - ACUTE RESPIRATORY FAILURE WITH HYPERCAPNIA
[2018-08-22] MEDS ORDERED: predniSONE 20 MG TABLET (UD) PO ONE (14:28)
[2018-08-22] MEDS ORDERED: INSULIN (NOVOLOG) ASPART 100 UNITS/ML 10ML VIAL ONE (17:35)
[2018-08-22] MEDS: MINERAL OIL/PET HY-PHL TOPICAL OINTMENT 454 GM JAR TP PRN (21:04)
[2018-08-23] MEDS: CLINDAMYCIN HCL 150 MG CAPSULE (FP) PO SCH ×3 (06:25→21:59)
[2018-08-23] MEDS: GABAPENTIN 300 MG CAPSULE (FP) PO SCH ×3 (06:25→22:00)
[2018-08-23] MEDS: INSULIN SLIDING SCALE (NOVOLOG) 1 VIAL SQ SCH ×4 (06:25→22:01)
[2018-08-23] MEDS: sitaGLIPtin PHOSPHATE 25 MG TABLET (FP) PO SCH (06:26)
[2018-08-23] MEDS: ARFORMOTEROL TARTRATE 15 MCG/2 ML VIAL NEB SCH ×2 (07:58→19:31)
[2018-08-23] MEDS: FUROSEMIDE 40 MG TABLET (FP) PO SCH (09:17)
[2018-08-23] MEDS: APIXABAN 5 MG TABLET PO SCH ×2 (09:17→22:00)
[2018-08-23] MEDS: RANITIDINE HCL 150 MG TABLET (FP) PO SCH (09:17)
[2018-08-23] MEDS: predniSONE 20 MG TABLET (UD) PO SCH (09:17)
[2018-08-23] MEDS: DOCUSATE SODIUM 100 MG CAPSULE (FP) PO SCH ×2 (09:18→22:00)
[2018-08-23] MEDS: TIOTROPIUM BROMIDE 2.5 MCG (SPIRIVA) RESPIMAT INHALER IH SCH (09:18)
[2018-08-23] MEDS: ALBUTEROL SO4 0.083% IH SOL 2.5 MG/3 ML VIAL.NEB. NEB PRN (11:58)
--- NOTE | 2018-08-23 12:09 | PN ---
Progress Note, Physician History of Present Illness: PULMONARY ALERT,STILL C/O SOB,CONGESTION,+ COUGH - Current Medication List Current Medications: Active Medications Albuterol Sulfate (Ventolin 0.083% Nebulizer Soln -) 1 amp NEB Q4H PRN PRN Reason: SHORT OF BREATH/WHEEZING Last Admin: 08/23/18 11:58 Dose: 1 amp Apixaban (Eliquis -) 5 mg PO BID [facility] Last Admin: 08/23/18 09:17 Dose: 5 mg Arformoterol Tartrate (Brovana (Restricted To Pulmonology/Resp) -) 1 amp NEB RBID [facility] Last Admin: 08/23/18 07:58 Dose: 1 amp Clindamycin HCl (Cleocin -) 300 mg PO TID [facility] Last Admin: 08/23/18 06:25 Dose: 300 mg Diltiazem HCl (Cardizem Cd -) 240 mg PO DAILY [facility] Last Admin: 08/23/18 09:18 Dose: 240 mg Docusate Sodium (Colace -) 100 mg PO BID [facility] Last Admin: 08/23/18 09:18 Dose: 100 mg Emollient Ointment (Aquaphor -) 1 applic TP Q12H PRN PRN Reason: DRYNESS Last Admin: 08/22/18 21:04 Dose: 1 applic Furosemide (Lasix -) 40 mg PO DAILY [facility] Last Admin: 08/23/18 09:17 Dose: 40 mg Gabapentin (Neurontin -) 300 mg PO TID [facility] Last Admin: 08/23/18 06:25 Dose: 300 mg Guaifenesin (Robitussin -) 10 ml PO Q6H PRN PRN Reason: COUGHING Last Admin: 08/22/18 21:19 Dose: 10 ml Insulin Aspart (Novolog Vial Sliding Scale -) 1 vial SQ ACHS [facility]; Protocol Last Admin: 08/23/18 11:15 Dose: 10 units Prednisone (Deltasone -) 60 mg PO DAILY [facility] Last Admin: 08/23/18 09:17 Dose: 60 mg Ranitidine HCl (Zantac -) 150 mg PO DAILY [facility] Last Admin: 08/23/18 09:17 Dose: 150 mg Sitagliptin Phosphate (Januvia -) 25 mg PO DAILY@0700 [facility] Last Admin: 08/23/18 06:26 Dose: Not Given Tiotropium [place] (Spiriva Respimat) 2 puff IH DAILY [facility] Last Admin: 08/23/18 09:18 Dose: 2 puff - Objective Vital Signs: Vital Signs Temperature 98.7 F 08/23/18 10:00 Pulse Rate 86 08/23/18 10:00 Respiratory Rate 20 08/23/18 10:00 Blood Pressure 156/72 08/23/18 10:00 O2 Sat by Pulse Oximetry (%) 98 08/23/18 09:00 Constitutional: Yes: Well Nourished, Calm, Obese Eyes: Yes: WNL HENT: Yes: WNL Neck: Yes: WNL Cardiovascular: Yes: Regular Rate and Rhythm, S1, S2 Respiratory: Yes: Rhonchi, Wheezes (ALESSANDRO RHONCHI AND WHEEZES) Gastrointestinal: Yes: Normal Bowel Sounds, Soft Extremities: Yes: WNL Edema: Yes Labs: CBC, BMP Problem List - Problems (1) Bronchitis Code(s): J40 - BRONCHITIS, NOT SPECIFIED ACUTE OR CHRONIC (2) CKD (chronic kidney disease) Code(s): N18.9 - CHRONIC KIDNEY DISEASE, UNSPECIFIED Qualifiers: Chronic kidney disease stage: stage 3 (moderate) Qualified Code(s): N18.3 - Chronic kidney disease, stage 3 (moderate) (3) COPD exacerbation Code(s): J44.1 - CHRONIC OBSTRUCTIVE PULMONARY DISEASE W (ACUTE) EXACERBATION (4) Diabetes Code(s): E11.9 - TYPE 2 DIABETES MELLITUS WITHOUT COMPLICATIONS (5) ASHD (arteriosclerotic heart disease) Code(s): I25.10 - ATHSCL HEART DISEASE OF [place] CORONARY ARTERY W/O ANG PCTRS (6) Tobacco abuse Code(s): Z72.0 - TOBACCO USE (7) Tobacco abuse counseling Code(s): Z71.6 - TOBACCO ABUSE COUNSELING (8) Acute hypercapnic respiratory failure Code(s): J96.02 - ACUTE RESPIRATORY FAILURE WITH HYPERCAPNIA Assessment/Plan IMP ACUTE HYPERCAPNEIC RESPIRATORY FAILURE COPD EXACERBATION LIKELY URI ASHD S/P DE CKD H/O DVT HYPERGLYCEMIA TOBACCO ABUSE PLAN PREDNISONE INHALED BRONCHODILATORS ABX GLYCEMIC CONTROL PFTS OUTPATIENT O2 SAT AT REST AND EXERCISE ON RA TO DETERMINE IF PT IS A CANDIDATE FOR HOME O2 OUTPATIENT SLEEP STUDIES DR WILLIAMSON Problem List - Problems (1) Bronchitis Code(s): J40 - BRONCHITIS, NOT SPECIFIED ACUTE OR CHRONIC (2) CKD (chronic kidney disease) Code(s): N18.9 - CHRONIC KIDNEY DISEASE, UNSPECIFIED Qualifiers: Chronic kidney disease stage: stage 3 (moderate) Qualified Code(s): N18.3 - Chronic kidney disease, stage 3 (moderate) (3) COPD exacerbation Code(s): J44.1 - CHRONIC OBSTRUCTIVE PULMONARY DISEASE W (ACUTE) EXACERBATION (4) Diabetes Code(s): E11.9 - TYPE 2 DIABETES MELLITUS WITHOUT COMPLICATIONS (5) ASHD (arteriosclerotic heart disease) Code(s): I25.10 - ATHSCL HEART DISEASE OF [place] CORONARY ARTERY W/O ANG PCTRS (6) Tobacco abuse Code(s): Z72.0 - TOBACCO USE (7) Tobacco abuse counseling Code(s): Z71.6 - TOBACCO ABUSE COUNSELING (8) Acute hypercapnic respiratory failure Code(s): J96.02 - ACUTE RESPIRATORY FAILURE WITH HYPERCAPNIA
--- NOTE | 2018-08-23 12:25 | PN ---
Progress Note, Physician History of Present Illness: pulmonary alert,less congested,+ cough - Current Medication List Current Medications: Active Medications Albuterol Sulfate (Ventolin 0.083% Nebulizer Soln -) 1 amp NEB Q4H PRN PRN Reason: SHORT OF BREATH/WHEEZING Last Admin: 08/23/18 11:58 Dose: 1 amp Apixaban (Eliquis -) 5 mg PO BID [facility] Last Admin: 08/23/18 09:17 Dose: 5 mg Arformoterol Tartrate (Brovana (Restricted To Pulmonology/Resp) -) 1 amp NEB RBID [facility] Last Admin: 08/23/18 07:58 Dose: 1 amp Clindamycin HCl (Cleocin -) 300 mg PO TID [facility] Last Admin: 08/23/18 06:25 Dose: 300 mg Diltiazem HCl (Cardizem Cd -) 240 mg PO DAILY [facility] Last Admin: 08/23/18 09:18 Dose: 240 mg Docusate Sodium (Colace -) 100 mg PO BID [facility] Last Admin: 08/23/18 09:18 Dose: 100 mg Emollient Ointment (Aquaphor -) 1 applic TP Q12H PRN PRN Reason: DRYNESS Last Admin: 08/22/18 21:04 Dose: 1 applic Furosemide (Lasix -) 40 mg PO DAILY [facility] Last Admin: 08/23/18 09:17 Dose: 40 mg Gabapentin (Neurontin -) 300 mg PO TID [facility] Last Admin: 08/23/18 06:25 Dose: 300 mg Guaifenesin (Robitussin -) 10 ml PO Q6H PRN PRN Reason: COUGHING Last Admin: 08/22/18 21:19 Dose: 10 ml Insulin Aspart (Novolog Vial Sliding Scale -) 1 vial SQ ACHS [facility]; Protocol Last Admin: 08/23/18 11:15 Dose: 10 units Prednisone (Deltasone -) 60 mg PO DAILY [facility] Last Admin: 08/23/18 09:17 Dose: 60 mg Ranitidine HCl (Zantac -) 150 mg PO DAILY [facility] Last Admin: 08/23/18 09:17 Dose: 150 mg Sitagliptin Phosphate (Januvia -) 25 mg PO DAILY@0700 [facility] Last Admin: 08/23/18 06:26 Dose: Not Given Tiotropium [place] (Spiriva Respimat) 2 puff IH DAILY [facility] Last Admin: 08/23/18 09:18 Dose: 2 puff - Objective Vital Signs: Vital Signs Temperature 98.7 F 08/23/18 10:00 Pulse Rate 86 08/23/18 10:00 Respiratory Rate 20 08/23/18 10:00 Blood Pressure 156/72 08/23/18 10:00 O2 Sat by Pulse Oximetry (%) 98 08/23/18 09:00 Constitutional: Yes: Calm, Obese Eyes: Yes: WNL HENT: Yes: WNL Neck: Yes: WNL Cardiovascular: Yes: Regular Rate and Rhythm, S1, S2 Respiratory: Yes: Rhonchi (scattered keshawn wheezes and rhonchi), Wheezes Gastrointestinal: Yes: Normal Bowel Sounds, Soft Extremities: Yes: WNL Edema: Yes Labs: CBC, BMP 08/20/18 06:00 08/21/18 12:27 Problem List - Problems (1) Bronchitis Code(s): J40 - BRONCHITIS, NOT SPECIFIED ACUTE OR CHRONIC (2) CKD (chronic kidney disease) Code(s): N18.9 - CHRONIC KIDNEY DISEASE, UNSPECIFIED Qualifiers: Chronic kidney disease stage: stage 3 (moderate) Qualified Code(s): N18.3 - Chronic kidney disease, stage 3 (moderate) (3) COPD exacerbation Code(s): J44.1 - CHRONIC OBSTRUCTIVE PULMONARY DISEASE W (ACUTE) EXACERBATION (4) Diabetes Code(s): E11.9 - TYPE 2 DIABETES MELLITUS WITHOUT COMPLICATIONS (5) ASHD (arteriosclerotic heart disease) Code(s): I25.10 - ATHSCL HEART DISEASE OF [place] CORONARY ARTERY W/O ANG PCTRS (6) Tobacco abuse Code(s): Z72.0 - TOBACCO USE (7) Tobacco abuse counseling Code(s): Z71.6 - TOBACCO ABUSE COUNSELING (8) Acute hypercapnic respiratory failure Code(s): J96.02 - ACUTE RESPIRATORY FAILURE WITH HYPERCAPNIA Assessment/Plan IMP ACUTE HYPERCAPNEIC RESPIRATORY FAILURE COPD EXACERBATION LIKELY URI ASHD S/P [place] CKD H/O DVT HYPERGLYCEMIA TOBACCO ABUSE PLAN PREDNISONE INHALED BRONCHODILATORS ABX GLYCEMIC CONTROL PFTS OUTPATIENT O2 SAT AT REST AND EXERCISE ON RA TO DETERMINE IF PT IS A CANDIDATE FOR HOME O2 OUTPATIENT SLEEP STUDIES SLEEP SCREEN DR WILLIAMSON Problem List - Problems (1) Bronchitis Code(s): J40 - BRONCHITIS, NOT SPECIFIED ACUTE OR CHRONIC (2) CKD (chronic kidney disease) Code(s): N18.9 - CHRONIC KIDNEY DISEASE, UNSPECIFIED Qualifiers: Chronic kidney disease stage: stage 3 (moderate) Qualified Code(s): N18.3 - Chronic kidney disease, stage 3 (moderate) (3) COPD exacerbation Code(s): J44.1 - CHRONIC OBSTRUCTIVE PULMONARY DISEASE W (ACUTE) EXACERBATION (4) Diabetes Code(s): E11.9 - TYPE 2 DIABETES MELLITUS WITHOUT COMPLICATIONS (5) ASHD (arteriosclerotic heart disease) Code(s): I25.10 - ATHSCL HEART DISEASE OF [place] CORONARY ARTERY W/O ANG PCTRS (6) Tobacco abuse Code(s): Z72.0 - TOBACCO USE (7) Tobacco abuse counseling Code(s): Z71.6 - TOBACCO ABUSE COUNSELING (8) Acute hypercapnic respiratory failure Code(s): J96.02 - ACUTE RESPIRATORY FAILURE WITH HYPERCAPNIA
--- NOTE | 2018-08-23 12:27 | PN ---
Progress Note, Physician History of Present Illness: feels much better breathing better still with cough - Current Medication List Current Medications: Active Medications Albuterol Sulfate (Ventolin 0.083% Nebulizer Soln -) 1 amp NEB Q4H PRN PRN Reason: SHORT OF BREATH/WHEEZING Last Admin: 08/23/18 11:58 Dose: 1 amp Apixaban (Eliquis -) 5 mg PO BID [facility] Last Admin: 08/23/18 09:17 Dose: 5 mg Arformoterol Tartrate (Brovana (Restricted To Pulmonology/Resp) -) 1 amp NEB RBID [facility] Last Admin: 08/23/18 07:58 Dose: 1 amp Clindamycin HCl (Cleocin -) 300 mg PO TID [facility] Last Admin: 08/23/18 06:25 Dose: 300 mg Diltiazem HCl (Cardizem Cd -) 240 mg PO DAILY [facility] Last Admin: 08/23/18 09:18 Dose: 240 mg Docusate Sodium (Colace -) 100 mg PO BID [facility] Last Admin: 08/23/18 09:18 Dose: 100 mg Emollient Ointment (Aquaphor -) 1 applic TP Q12H PRN PRN Reason: DRYNESS Last Admin: 08/22/18 21:04 Dose: 1 applic Furosemide (Lasix -) 40 mg PO DAILY [facility] Last Admin: 08/23/18 09:17 Dose: 40 mg Gabapentin (Neurontin -) 300 mg PO TID [facility] Last Admin: 08/23/18 06:25 Dose: 300 mg Guaifenesin (Robitussin -) 10 ml PO Q6H PRN PRN Reason: COUGHING Last Admin: 08/22/18 21:19 Dose: 10 ml Insulin Aspart (Novolog Vial Sliding Scale -) 1 vial SQ ACHS [facility]; Protocol Last Admin: 08/23/18 11:15 Dose: 10 units Prednisone (Deltasone -) 60 mg PO DAILY [facility] Last Admin: 08/23/18 09:17 Dose: 60 mg Ranitidine HCl (Zantac -) 150 mg PO DAILY [facility] Last Admin: 08/23/18 09:17 Dose: 150 mg Sitagliptin Phosphate (Januvia -) 25 mg PO DAILY@0700 [facility] Last Admin: 08/23/18 06:26 Dose: Not Given Tiotropium [place] (Spiriva Respimat) 2 puff IH DAILY [facility] Last Admin: 08/23/18 09:18 Dose: 2 puff - Objective Vital Signs: Vital Signs Temperature 98.7 F 08/23/18 10:00 Pulse Rate 86 08/23/18 10:00 Respiratory Rate 20 08/23/18 10:00 Blood Pressure 156/72 08/23/18 10:00 O2 Sat by Pulse Oximetry (%) 98 08/23/18 09:00 Constitutional: Yes: No Distress, Calm Cardiovascular: Yes: Regular Rate and Rhythm Respiratory: Yes: Poor Air Entry, Rhonchi Gastrointestinal: Yes: Normal Bowel Sounds, Soft Musculoskeletal: Yes: WNL Extremities: Yes: WNL Neurological: Yes: Alert, Oriented Psychiatric: Yes: Alert, Oriented Labs: CBC, BMP 08/20/18 06:00 08/21/18 12:27 Assessment/Plan - Problems (1) COPD exacerbation Code(s): J44.1 - CHRONIC OBSTRUCTIVE PULMONARY DISEASE W (ACUTE) EXACERBATION (2) PNA (pneumonia) Code(s): J18.9 - PNEUMONIA, UNSPECIFIED ORGANISM Qualifiers: Pneumonia type: due to unspecified organism Laterality: unspecified laterality Lung location: unspecified part of lung Qualified Code(s): J18.9 - Pneumonia, unspecified organism (3) CKD (chronic kidney disease) Code(s): N18.9 - CHRONIC KIDNEY DISEASE, UNSPECIFIED Qualifiers: Chronic kidney disease stage: stage 3 (moderate) Qualified Code(s): N18.3 - Chronic kidney disease, stage 3 (moderate) plan ct curent mgmt will stop abx tomorrow incentive brianna rest as per the team
--- NOTE | 2018-08-23 12:38 | PN ---
Progress Note, Physician History of Present Illness: Pt seen and examined on 08/22/18 however note is being entered now - Current Medication List Current Medications: Active Medications Albuterol Sulfate (Ventolin 0.083% Nebulizer Soln -) 1 amp NEB Q4H PRN PRN Reason: SHORT OF BREATH/WHEEZING Last Admin: 08/23/18 11:58 Dose: 1 amp Apixaban (Eliquis -) 5 mg PO BID [facility] Last Admin: 08/23/18 09:17 Dose: 5 mg Arformoterol Tartrate (Brovana (Restricted To Pulmonology/Resp) -) 1 amp NEB RBID [facility] Last Admin: 08/23/18 07:58 Dose: 1 amp Clindamycin HCl (Cleocin -) 300 mg PO TID [facility] Last Admin: 08/23/18 06:25 Dose: 300 mg Diltiazem HCl (Cardizem Cd -) 240 mg PO DAILY [facility] Last Admin: 08/23/18 09:18 Dose: 240 mg Docusate Sodium (Colace -) 100 mg PO BID [facility] Last Admin: 08/23/18 09:18 Dose: 100 mg Emollient Ointment (Aquaphor -) 1 applic TP Q12H PRN PRN Reason: DRYNESS Last Admin: 08/22/18 21:04 Dose: 1 applic Furosemide (Lasix -) 40 mg PO DAILY [facility] Last Admin: 08/23/18 09:17 Dose: 40 mg Gabapentin (Neurontin -) 300 mg PO TID [facility] Last Admin: 08/23/18 06:25 Dose: 300 mg Guaifenesin (Robitussin -) 10 ml PO Q6H PRN PRN Reason: COUGHING Last Admin: 08/22/18 21:19 Dose: 10 ml Insulin Aspart (Novolog Vial Sliding Scale -) 1 vial SQ ACHS [facility]; Protocol Last Admin: 08/23/18 11:15 Dose: 10 units Prednisone (Deltasone -) 60 mg PO DAILY [facility] Last Admin: 08/23/18 09:17 Dose: 60 mg Ranitidine HCl (Zantac -) 150 mg PO DAILY [facility] Last Admin: 08/23/18 09:17 Dose: 150 mg Sitagliptin Phosphate (Januvia -) 25 mg PO DAILY@0700 [facility] Last Admin: 08/23/18 06:26 Dose: Not Given Tiotropium [place] (Spiriva Respimat) 2 puff IH DAILY [facility] Last Admin: 08/23/18 09:18 Dose: 2 puff - Objective Vital Signs: Vital Signs Temperature 98.7 F 08/23/18 10:00 Pulse Rate 86 08/23/18 10:00 Respiratory Rate 20 08/23/18 10:00 Blood Pressure 156/72 08/23/18 10:00 O2 Sat by Pulse Oximetry (%) 98 08/23/18 09:00 Constitutional: Yes: Well Nourished Neck: Yes: WNL, Supple Cardiovascular: Yes: WNL, Regular Rate and Rhythm Respiratory: Yes: Rhonchi, Wheezes Gastrointestinal: Yes: WNL, Normal Bowel Sounds, Soft, Abdomen, Obese Labs: CBC, BMP 08/20/18 06:00 08/21/18 12:27 Problem List - Problems (1) COPD exacerbation Assessment/Plan: Cont present regimen Code(s): J44.1 - CHRONIC OBSTRUCTIVE PULMONARY DISEASE W (ACUTE) EXACERBATION (2) ASHD (arteriosclerotic heart disease) Code(s): I25.10 - ATHSCL HEART DISEASE OF [place] CORONARY ARTERY W/O ANG PCTRS (3) CKD (chronic kidney disease) Code(s): N18.9 - CHRONIC KIDNEY DISEASE, UNSPECIFIED Qualifiers: Chronic kidney disease stage: stage 3 (moderate) Qualified Code(s): N18.3 - Chronic kidney disease, stage 3 (moderate) (4) Diabetes Code(s): E11.9 - TYPE 2 DIABETES MELLITUS WITHOUT COMPLICATIONS
[2018-08-23] MEDS: guaiFENesin/CODEINE 10 ML UNIT-DOSE CUPS PO PRN (16:52)
--- NOTE | 2018-08-23 20:42 | PN ---
Progress Note, Physician History of Present Illness: Pt complains of cough and SOB - Current Medication List Current Medications: Active Medications Albuterol Sulfate (Ventolin 0.083% Nebulizer Soln -) 1 amp NEB Q4H PRN PRN Reason: SHORT OF BREATH/WHEEZING Last Admin: 08/23/18 11:58 Dose: 1 amp Apixaban (Eliquis -) 5 mg PO BID [facility] Last Admin: 08/23/18 09:17 Dose: 5 mg Arformoterol Tartrate (Brovana (Restricted To Pulmonology/Resp) -) 1 amp NEB RBID [facility] Last Admin: 08/23/18 19:31 Dose: 1 amp Clindamycin HCl (Cleocin -) 300 mg PO TID [facility] Last Admin: 08/23/18 13:24 Dose: 300 mg Diltiazem HCl (Cardizem Cd -) 240 mg PO DAILY [facility] Last Admin: 08/23/18 09:18 Dose: 240 mg Docusate Sodium (Colace -) 100 mg PO BID [facility] Last Admin: 08/23/18 09:18 Dose: 100 mg Emollient Ointment (Aquaphor -) 1 applic TP Q12H PRN PRN Reason: DRYNESS Last Admin: 08/22/18 21:04 Dose: 1 applic Furosemide (Lasix -) 40 mg PO DAILY [facility] Last Admin: 08/23/18 09:17 Dose: 40 mg Gabapentin (Neurontin -) 300 mg PO TID [facility] Last Admin: 08/23/18 13:24 Dose: 300 mg Guaifenesin/Codeine Phosphate (Robitussin Ac -) 10 ml PO Q6H PRN PRN Reason: COUGHING Last Admin: 08/23/18 16:52 Dose: 10 ml Insulin Aspart (Novolog Vial Sliding Scale -) 1 vial SQ ACHS [facility]; Protocol Last Admin: 08/23/18 16:52 Dose: 14 units Prednisone (Deltasone -) 60 mg PO DAILY [facility] Last Admin: 08/23/18 09:17 Dose: 60 mg Ranitidine HCl (Zantac -) 150 mg PO DAILY [facility] Last Admin: 08/23/18 09:17 Dose: 150 mg Sitagliptin Phosphate (Januvia -) 25 mg PO DAILY@0700 [facility] Last Admin: 08/23/18 06:26 Dose: Not Given Tiotropium [place] (Spiriva Respimat) 2 puff IH DAILY [facility] Last Admin: 08/23/18 09:18 Dose: 2 puff - Objective Vital Signs: Vital Signs Temperature 98 F 08/23/18 16:30 Pulse Rate 76 08/23/18 16:30 Respiratory Rate 18 08/23/18 16:30 Blood Pressure 126/73 08/23/18 16:30 O2 Sat by Pulse Oximetry (%) 98 08/23/18 09:00 Neck: Yes: WNL, Supple Cardiovascular: Yes: WNL, Regular Rate and Rhythm Respiratory: Yes: Rhonchi, Wheezes Gastrointestinal: Yes: WNL, Normal Bowel Sounds, Soft Labs: CBC, BMP 08/20/18 06:00 08/23/18 17:30 Problem List - Problems (1) COPD exacerbation Assessment/Plan: Due to wheezing Monitor another 24 hrs on prednisone If no improvement ?IV solumedrol or repeat imaging Cont nebulizers As per pulmonary Code(s): J44.1 - CHRONIC OBSTRUCTIVE PULMONARY DISEASE W (ACUTE) EXACERBATION (2) Diabetes Assessment/Plan: Elevated glucose could be secondary to steroids Cont to monitor Code(s): E11.9 - TYPE 2 DIABETES MELLITUS WITHOUT COMPLICATIONS (3) CKD (chronic kidney disease) Code(s): N18.9 - CHRONIC KIDNEY DISEASE, UNSPECIFIED Qualifiers: Chronic kidney disease stage: stage 3 (moderate) Qualified Code(s): N18.3 - Chronic kidney disease, stage 3 (moderate) (4) ASHD (arteriosclerotic heart disease) Code(s): I25.10 - ATHSCL HEART DISEASE OF [place] CORONARY ARTERY W/O ANG PCTRS
[2018-08-24] MEDS: INSULIN SLIDING SCALE (NOVOLOG) 1 VIAL SQ SCH ×4 (07:07→21:50)
[2018-08-24] MEDS: ARFORMOTEROL TARTRATE 15 MCG/2 ML VIAL NEB SCH ×2 (07:25→21:09)
[2018-08-24] MEDS: CLINDAMYCIN HCL 150 MG CAPSULE (FP) PO SCH ×3 (09:45→21:47)
[2018-08-24] MEDS: GABAPENTIN 300 MG CAPSULE (FP) PO SCH ×3 (09:45→21:47)
[2018-08-24] MEDS: predniSONE 20 MG TABLET (UD) PO SCH (09:45)
[2018-08-24] MEDS: DOCUSATE SODIUM 100 MG CAPSULE (FP) PO SCH ×2 (09:45→21:47)
[2018-08-24] MEDS: RANITIDINE HCL 150 MG TABLET (FP) PO SCH (09:46)
[2018-08-24] MEDS: FUROSEMIDE 40 MG TABLET (FP) PO SCH (09:46)
[2018-08-24] MEDS: APIXABAN 5 MG TABLET PO SCH ×2 (09:46→21:47)
[2018-08-24] MEDS: MINERAL OIL/PET HY-PHL TOPICAL OINTMENT 454 GM JAR TP PRN (09:47)
[2018-08-24] MEDS: sitaGLIPtin PHOSPHATE 25 MG TABLET (FP) PO SCH (09:47)
[2018-08-24] MEDS: TIOTROPIUM BROMIDE 2.5 MCG (SPIRIVA) RESPIMAT INHALER IH SCH (09:48)
[2018-08-24] MEDS: guaiFENesin/CODEINE 10 ML UNIT-DOSE CUPS PO PRN ×2 (10:16→21:50)
--- NOTE | 2018-08-24 10:34 | PN ---
Progress Note (short form) - Note Progress Note: PULMONARY States breathing about the same. Leg pain limiting her exercise tolerance. Still some cough and wheezing. Vital Signs Period Temp Pulse Resp BP Sys/Haskins Pulse Ox Last 24 Hr 97.5 F-98.5 F 75-76 18-20 126-130/73-76 98 Gen: NAD at rest Heart: RRR Lung: decreased breath sounds at the bases, no wheezes Abd: soft, nontender Ext: no edema CBC, BMP 08/20/18 06:00 08/23/18 17:30 Active Medications Albuterol Sulfate (Ventolin 0.083% Nebulizer Soln -) 1 amp NEB Q4H PRN PRN Reason: SHORT OF BREATH/WHEEZING Last Admin: 08/23/18 11:58 Dose: 1 amp Apixaban (Eliquis -) 5 mg PO BID [facility] Last Admin: 08/24/18 09:46 Dose: 5 mg Arformoterol Tartrate (Brovana (Restricted To Pulmonology/Resp) -) 1 amp NEB RBID [facility] Last Admin: 08/24/18 07:25 Dose: 1 amp Clindamycin HCl (Cleocin -) 300 mg PO TID [facility] Last Admin: 08/24/18 09:45 Dose: 300 mg Diltiazem HCl (Cardizem Cd -) 240 mg PO DAILY [facility] Last Admin: 08/24/18 09:46 Dose: 240 mg Docusate Sodium (Colace -) 100 mg PO BID [facility] Last Admin: 08/24/18 09:45 Dose: 100 mg Emollient Ointment (Aquaphor -) 1 applic TP Q12H PRN PRN Reason: DRYNESS Last Admin: 08/24/18 09:47 Dose: 1 applic Furosemide (Lasix -) 40 mg PO DAILY [facility] Last Admin: 08/24/18 09:46 Dose: 40 mg Gabapentin (Neurontin -) 300 mg PO TID [facility] Last Admin: 08/24/18 09:45 Dose: 300 mg Guaifenesin/Codeine Phosphate (Robitussin Ac -) 10 ml PO Q6H PRN PRN Reason: COUGHING Last Admin: 08/24/18 10:16 Dose: 10 ml Insulin Aspart (Novolog Vial Sliding Scale -) 1 vial SQ ACHS [facility]; Protocol Last Admin: 08/24/18 07:07 Dose: Not Given Prednisone (Deltasone -) 60 mg PO DAILY [facility] Last Admin: 08/24/18 09:45 Dose: 60 mg Ranitidine HCl (Zantac -) 150 mg PO DAILY [facility] Last Admin: 08/24/18 09:46 Dose: 150 mg Sitagliptin Phosphate (Januvia -) 25 mg PO DAILY@0700 [facility] Last Admin: 08/24/18 09:47 Dose: Not Given Tiotropium [place] (Spiriva Respimat) 2 puff IH DAILY [facility] Last Admin: 08/24/18 09:48 Dose: 2 puff A/P Acute COPD Exacerbation URI CAD CKD h/o DVT Smoker Likely ROYAL - prednisone taper - inhaled bronchodilators - O2 as needed - continue anticoagulation - will need formal sleep study as outpt - can d/c home from pulmonary standpoint
[2018-08-24] MEDS: ALBUTEROL SO4 0.083% IH SOL 2.5 MG/3 ML VIAL.NEB. NEB PRN (10:58)
--- NOTE | 2018-08-24 11:11 | PN ---
Progress Note, Physician - Current Medication List Current Medications: Active Medications Albuterol Sulfate (Ventolin 0.083% Nebulizer Soln -) 1 amp NEB Q4H PRN PRN Reason: SHORT OF BREATH/WHEEZING Last Admin: 08/24/18 10:58 Dose: 1 amp Apixaban (Eliquis -) 5 mg PO BID [facility] Last Admin: 08/24/18 09:46 Dose: 5 mg Arformoterol Tartrate (Brovana (Restricted To Pulmonology/Resp) -) 1 amp NEB RBID [facility] Last Admin: 08/24/18 07:25 Dose: 1 amp Clindamycin HCl (Cleocin -) 300 mg PO TID [facility] Last Admin: 08/24/18 09:45 Dose: 300 mg Diltiazem HCl (Cardizem Cd -) 240 mg PO DAILY [facility] Last Admin: 08/24/18 09:46 Dose: 240 mg Docusate Sodium (Colace -) 100 mg PO BID [facility] Last Admin: 08/24/18 09:45 Dose: 100 mg Emollient Ointment (Aquaphor -) 1 applic TP Q12H PRN PRN Reason: DRYNESS Last Admin: 08/24/18 09:47 Dose: 1 applic Furosemide (Lasix -) 40 mg PO DAILY [facility] Last Admin: 08/24/18 09:46 Dose: 40 mg Gabapentin (Neurontin -) 300 mg PO TID [facility] Last Admin: 08/24/18 09:45 Dose: 300 mg Guaifenesin/Codeine Phosphate (Robitussin Ac -) 10 ml PO Q6H PRN PRN Reason: COUGHING Last Admin: 08/24/18 10:16 Dose: 10 ml Insulin Aspart (Novolog Vial Sliding Scale -) 1 vial SQ ACHS [facility]; Protocol Last Admin: 08/24/18 07:07 Dose: Not Given Prednisone (Deltasone -) 60 mg PO DAILY [facility] Last Admin: 08/24/18 09:45 Dose: 60 mg Ranitidine HCl (Zantac -) 150 mg PO DAILY [facility] Last Admin: 08/24/18 09:46 Dose: 150 mg Sitagliptin Phosphate (Januvia -) 25 mg PO DAILY@0700 [facility] Last Admin: 08/24/18 09:47 Dose: Not Given Tiotropium [place] (Spiriva Respimat) 2 puff IH DAILY [facility] Last Admin: 08/24/18 09:48 Dose: 2 puff - Objective Vital Signs: Vital Signs Temperature 97.5 F L 08/24/18 06:52 Pulse Rate 75 08/24/18 06:52 Respiratory Rate 20 08/24/18 06:52 Blood Pressure 130/76 08/24/18 06:52 O2 Sat by Pulse Oximetry (%) 98 08/23/18 21:00 Labs: CBC, BMP 08/20/18 06:00 08/23/18 17:30
--- NOTE | 2018-08-24 18:08 | DS ---
Physical Examination Vital Signs: Vital Signs Temperature 98.0 F 08/24/18 15:38 Pulse Rate 92 H 08/24/18 15:38 Respiratory Rate 16 08/24/18 15:38 Blood Pressure 124/92 08/24/18 15:38 O2 Sat by Pulse Oximetry (%) 98 08/24/18 09:00 Labs: CBC, BMP 08/20/18 06:00 08/23/18 17:30 Discharge Summary Reason For Visit: COMMUNITY ACQUIRED PNEUMONIA Current Active Problems ASHD (arteriosclerotic heart disease) (Acute) Acute hypercapnic respiratory failure (Acute) Bronchitis (Acute) CKD (chronic kidney disease) (Acute) COPD exacerbation (Acute) Diabetes (Acute) PNA (pneumonia) (Acute) Tobacco abuse (Acute) Tobacco abuse counseling (Acute) - Instructions Referrals: Gabriel Guthrie [Primary Care Provider] - - Home Medications Comprehensive Discharge Medication List: Ambulatory Orders Albuterol 0.083% Nebulizer [place] [Ventolin 0.083% Nebulizer Soln -] 1 amp NEB TID 08/17/18 Apixaban [Eliquis] 5 mg PO BID 08/17/18 Diltiazem Cd [Cardizem Cd -] 240 mg PO DAILY 08/17/18 Docusate Sodium [Colace] 100 mg PO BID 08/17/18 Furosemide [Lasix] 40 mg PO DAILY 08/17/18 Gabapentin 400 mg PO HS 08/17/18 Gabapentin [Neurontin -] 300 mg PO Q8H 08/17/18 Linagliptin [Tradjenta] 5 mg PO DAILY 08/17/18 Ranitidine [Zantac -] 150 mg PO DAILY 08/17/18 Tiotropium [place] [Spiriva] 1 inh PO DAILY 08/17/18 Clindamycin [Cleocin -] 300 mg PO Q6HPO #20 capsule 08/20/18 Prednisone 10 mg PO ASDIR #30 tablet 08/20/18
--- NOTE | 2018-08-24 19:23 | PN ---
Progress Note, Physician - Current Medication List Current Medications: Active Medications Apixaban (Eliquis -) 5 mg PO BID [facility] Last Admin: 08/24/18 09:46 Dose: 5 mg Arformoterol Tartrate (Brovana (Restricted To Pulmonology/Resp) -) 1 amp NEB RBID [facility] Last Admin: 08/24/18 07:25 Dose: 1 amp Clindamycin HCl (Cleocin -) 300 mg PO TID [facility] Last Admin: 08/24/18 14:48 Dose: 300 mg Diltiazem HCl (Cardizem Cd -) 240 mg PO DAILY [facility] Last Admin: 08/24/18 09:46 Dose: 240 mg Docusate Sodium (Colace -) 100 mg PO BID [facility] Last Admin: 08/24/18 09:45 Dose: 100 mg Emollient Ointment (Aquaphor -) 1 applic TP Q12H PRN PRN Reason: DRYNESS Last Admin: 08/24/18 09:47 Dose: 1 applic Furosemide (Lasix -) 40 mg PO DAILY [facility] Last Admin: 08/24/18 09:46 Dose: 40 mg Gabapentin (Neurontin -) 300 mg PO TID [facility] Last Admin: 08/24/18 14:48 Dose: 300 mg Guaifenesin/Codeine Phosphate (Robitussin Ac -) 10 ml PO Q6H PRN PRN Reason: COUGHING Last Admin: 08/24/18 10:16 Dose: 10 ml Insulin Aspart (Novolog Vial Sliding Scale -) 1 vial SQ [facility]; Protocol Last Admin: 08/24/18 17:54 Dose: 14 units Prednisone (Deltasone -) 60 mg PO DAILY [facility] Last Admin: 08/24/18 09:45 Dose: 60 mg Ranitidine HCl (Zantac -) 150 mg PO DAILY [facility] Last Admin: 08/24/18 09:46 Dose: 150 mg Sitagliptin Phosphate (Januvia -) 25 mg PO DAILY@0700 [facility] Last Admin: 08/24/18 09:47 Dose: Not Given Tiotropium [place] (Spiriva Respimat) 2 puff IH DAILY [facility] Last Admin: 08/24/18 09:48 Dose: 2 puff - Objective Vital Signs: Vital Signs Temperature 98.0 F 08/24/18 15:38 Pulse Rate 92 H 08/24/18 15:38 Respiratory Rate 16 08/24/18 15:38 Blood Pressure 124/92 08/24/18 15:38 O2 Sat by Pulse Oximetry (%) 98 08/24/18 09:00 Constitutional: Yes: No Distress HENT: Yes: Atraumatic Neck: Yes: Supple Cardiovascular: Yes: Regular Rate and Rhythm Respiratory: Yes: Rhonchi, Wheezes Gastrointestinal: Yes: Normal Bowel Sounds Extremities: Yes: WNL Edema: No Peripheral Pulses WNL: Yes Neurological: Yes: Alert, Oriented Labs: CBC, BMP 08/20/18 06:00 08/23/18 17:30 Problem List - Problems (1) COPD exacerbation Assessment/Plan: duo neb on po steroids for few days Code(s): J44.1 - CHRONIC OBSTRUCTIVE PULMONARY DISEASE W (ACUTE) EXACERBATION (2) PNA (pneumonia) Assessment/Plan: on po abx id consult Code(s): J18.9 - PNEUMONIA, UNSPECIFIED ORGANISM Qualifiers: Pneumonia type: due to unspecified organism Laterality: unspecified laterality Lung location: unspecified part of lung Qualified Code(s): J18.9 - Pneumonia, unspecified organism (3) Diabetes Assessment/Plan: on meds bgms Code(s): E11.9 - TYPE 2 DIABETES MELLITUS WITHOUT COMPLICATIONS (4) ASHD (arteriosclerotic heart disease) Code(s): I25.10 - ATHSCL HEART DISEASE OF [place] CORONARY ARTERY W/O ANG PCTRS (5) CKD (chronic kidney disease) Code(s): N18.9 - CHRONIC KIDNEY DISEASE, UNSPECIFIED Qualifiers: Chronic kidney disease stage: stage 3 (moderate) Qualified Code(s): N18.3 - Chronic kidney disease, stage 3 (moderate) (6) Tobacco abuse Code(s): Z72.0 - TOBACCO USE
[2018-08-25] MEDS: ARFORMOTEROL TARTRATE 15 MCG/2 ML VIAL NEB SCH (08:35)
[2018-08-25] MEDS: CLINDAMYCIN HCL 150 MG CAPSULE (FP) PO SCH ×2 (09:40→13:32)
[2018-08-25] MEDS: predniSONE 20 MG TABLET (UD) PO SCH (09:40)
[2018-08-25] MEDS: APIXABAN 5 MG TABLET PO SCH (09:40)
[2018-08-25] MEDS: FUROSEMIDE 40 MG TABLET (FP) PO SCH (09:40)
[2018-08-25] MEDS: GABAPENTIN 300 MG CAPSULE (FP) PO SCH ×2 (09:40→13:32)
[2018-08-25] MEDS: DOCUSATE SODIUM 100 MG CAPSULE (FP) PO SCH (09:40)
[2018-08-25] MEDS: RANITIDINE HCL 150 MG TABLET (FP) PO SCH (09:40)
[2018-08-25] MEDS: sitaGLIPtin PHOSPHATE 25 MG TABLET (FP) PO SCH (09:41)
[2018-08-25] MEDS: TIOTROPIUM BROMIDE 2.5 MCG (SPIRIVA) RESPIMAT INHALER IH SCH (09:41)
[2018-08-25] MEDS: MINERAL OIL/PET HY-PHL TOPICAL OINTMENT 454 GM JAR TP PRN (09:42)
[2018-08-25] MEDS: INSULIN SLIDING SCALE (NOVOLOG) 1 VIAL SQ SCH ×3 (09:42→16:38)
--- NOTE | 2018-08-25 10:05 | PN ---
Progress Note (short form) - Note Progress Note: PULMONARY States breathing about the same. Still some cough and wheezing. Vital Signs Period Temp Pulse Resp BP Sys/Haskins Pulse Ox Last 24 Hr 98 F-98.7 F 76-92 16-20 117-146/65-92 98 Gen: NAD at rest Heart: RRR Lung: decreased breath sounds at the bases, no wheezes Abd: soft, nontender Ext: no edema CBC, BMP 08/20/18 06:00 08/23/18 17:30 Active Medications Apixaban (Eliquis -) 5 mg PO BID [facility] Last Admin: 08/25/18 09:40 Dose: 5 mg Arformoterol Tartrate (Brovana (Restricted To Pulmonology/Resp) -) 1 amp NEB RBID [facility] Last Admin: 08/25/18 08:35 Dose: 1 amp Clindamycin HCl (Cleocin -) 300 mg PO TID [facility] Last Admin: 08/25/18 09:40 Dose: 300 mg Diltiazem HCl (Cardizem Cd -) 240 mg PO DAILY [facility] Last Admin: 08/25/18 09:40 Dose: 240 mg Docusate Sodium (Colace -) 100 mg PO BID [facility] Last Admin: 08/25/18 09:40 Dose: 100 mg Emollient Ointment (Aquaphor -) 1 applic TP Q12H PRN PRN Reason: DRYNESS Last Admin: 08/25/18 09:42 Dose: 1 applic Furosemide (Lasix -) 40 mg PO DAILY [facility] Last Admin: 08/25/18 09:40 Dose: 40 mg Gabapentin (Neurontin -) 300 mg PO TID [facility] Last Admin: 08/25/18 09:40 Dose: 300 mg Guaifenesin/Codeine Phosphate (Robitussin Ac -) 10 ml PO Q6H PRN PRN Reason: COUGHING Last Admin: 08/24/18 21:50 Dose: 10 ml Insulin Aspart (Novolog Vial Sliding Scale -) 1 vial SQ ACHS [facility]; Protocol Last Admin: 08/25/18 09:42 Dose: Not Given Prednisone (Deltasone -) 60 mg PO DAILY [facility] Last Admin: 08/25/18 09:40 Dose: 60 mg Ranitidine HCl (Zantac -) 150 mg PO DAILY [facility] Last Admin: 08/25/18 09:40 Dose: 150 mg Sitagliptin Phosphate (Januvia -) 25 mg PO DAILY@0700 [facility] Last Admin: 08/25/18 09:41 Dose: Not Given Tiotropium [place] (Spiriva Respimat) 2 puff IH DAILY [facility] Last Admin: 08/25/18 09:41 Dose: Not Given A/P Acute COPD Exacerbation URI CAD CKD h/o DVT Smoker Likely ROYAL - prednisone taper, will likely need slow taper - inhaled bronchodilators - O2 as needed - continue anticoagulation - will need formal sleep study as outpt - can d/c home from pulmonary standpoint
[2018-08-25] MEDS: guaiFENesin/CODEINE 10 ML UNIT-DOSE CUPS PO PRN (10:08)
[2018-08-25 11:57] VITALS: BMI 33.6
--- NOTE | 2018-08-25 13:33 | PN ---
Progress Note, Physician History of Present Illness: still with cough no new issues breathing better - Current Medication List Current Medications: Active Medications Apixaban (Eliquis -) 5 mg PO BID [facility] Last Admin: 08/25/18 09:40 Dose: 5 mg Arformoterol Tartrate (Brovana (Restricted To Pulmonology/Resp) -) 1 amp NEB RBID [facility] Last Admin: 08/25/18 08:35 Dose: 1 amp Clindamycin HCl (Cleocin -) 300 mg PO TID [facility] Last Admin: 08/25/18 13:32 Dose: 300 mg Diltiazem HCl (Cardizem Cd -) 240 mg PO DAILY [facility] Last Admin: 08/25/18 09:40 Dose: 240 mg Docusate Sodium (Colace -) 100 mg PO BID [facility] Last Admin: 08/25/18 09:40 Dose: 100 mg Emollient Ointment (Aquaphor -) 1 applic TP Q12H PRN PRN Reason: DRYNESS Last Admin: 08/25/18 09:42 Dose: 1 applic Furosemide (Lasix -) 40 mg PO DAILY [facility] Last Admin: 08/25/18 09:40 Dose: 40 mg Gabapentin (Neurontin -) 300 mg PO TID [facility] Last Admin: 08/25/18 13:32 Dose: 300 mg Guaifenesin/Codeine Phosphate (Robitussin Ac -) 10 ml PO Q6H PRN PRN Reason: COUGHING Last Admin: 08/25/18 10:08 Dose: 10 ml Insulin Aspart (Novolog Vial Sliding Scale -) 1 vial SQ [facility]; Protocol Last Admin: 08/25/18 12:31 Dose: 12 units Prednisone (Deltasone -) 60 mg PO DAILY [facility] Last Admin: 08/25/18 09:40 Dose: 60 mg Ranitidine HCl (Zantac -) 150 mg PO DAILY [facility] Last Admin: 08/25/18 09:40 Dose: 150 mg Sitagliptin Phosphate (Januvia -) 25 mg PO DAILY@0700 [facility] Last Admin: 08/25/18 09:41 Dose: Not Given Tiotropium [place] (Spiriva Respimat) 2 puff IH DAILY [facility] Last Admin: 08/25/18 09:41 Dose: Not Given - Objective Vital Signs: Vital Signs Temperature 98.1 F 08/25/18 09:56 Pulse Rate 86 08/25/18 09:56 Respiratory Rate 18 08/25/18 09:56 Blood Pressure 146/69 08/25/18 09:56 O2 Sat by Pulse Oximetry (%) 98 08/25/18 09:00 Constitutional: Yes: No Distress, Calm Cardiovascular: Yes: Regular Rate and Rhythm Respiratory: Yes: On Nasal O2, Rhonchi, Other Gastrointestinal: Yes: Normal Bowel Sounds, Soft Musculoskeletal: Yes: WNL Extremities: Yes: WNL Neurological: Yes: Alert, Oriented Psychiatric: Yes: Alert, Oriented Labs: CBC, BMP 08/20/18 06:00 08/23/18 17:30 Assessment/Plan - Problems (1) COPD exacerbation Code(s): J44.1 - CHRONIC OBSTRUCTIVE PULMONARY DISEASE W (ACUTE) EXACERBATION (2) PNA (pneumonia) Code(s): J18.9 - PNEUMONIA, UNSPECIFIED ORGANISM Qualifiers: Pneumonia type: due to unspecified organism Laterality: unspecified laterality Lung location: unspecified part of lung Qualified Code(s): J18.9 - Pneumonia, unspecified organism (3) CKD (chronic kidney disease) Code(s): N18.9 - CHRONIC KIDNEY DISEASE, UNSPECIFIED Qualifiers: Chronic kidney disease stage: stage 3 (moderate) Qualified Code(s): N18.3 - Chronic kidney disease, stage 3 (moderate) plan ct curent mgmt off of abx incentive brianna rest as per the team
[2018-08-25 14:37] VITALS: BP 140/84; PULSE 96; TEMP 98.7
[2018-08-25] MEDS ORDERED: ALBUTEROL SO4 0.083% IH SOL 2.5 MG/3 ML VIAL.NEB. NEB ONE (14:56)
--- NOTE | 2018-08-25 17:00 | DS ---
Physical Examination Vital Signs: Vital Signs Temperature 98.7 F 08/25/18 14:36 Pulse Rate 96 H 08/25/18 14:36 Respiratory Rate 18 08/25/18 14:36 Blood Pressure 140/84 08/25/18 14:36 O2 Sat by Pulse Oximetry (%) 98 08/25/18 09:00 Constitutional: Yes: No Distress HENT: Yes: Atraumatic Neck: Yes: Supple Cardiovascular: Yes: Regular Rate and Rhythm Respiratory: Yes: Rhonchi Gastrointestinal: Yes: Normal Bowel Sounds Extremities: Yes: WNL Labs: CBC, BMP 08/20/18 06:00 08/23/18 17:30 Discharge Summary Reason For Visit: COMMUNITY ACQUIRED PNEUMONIA - Instructions Diet, Activity, Other Instructions: Activity as tolerated Diabetic diet May take shower Referrals: Gabriel Guthrie [Primary Care Provider] - Disposition: HOME - Home Medications Comprehensive Discharge Medication List: Ambulatory Orders Albuterol 0.083% Nebulizer [place] [Ventolin 0.083% Nebulizer Soln -] 1 amp NEB TID 08/17/18 Apixaban [Eliquis] 5 mg PO BID 08/17/18 Diltiazem Cd [Cardizem Cd -] 240 mg PO DAILY 08/17/18 Docusate Sodium [Colace] 100 mg PO BID 08/17/18 Furosemide [Lasix] 40 mg PO DAILY 08/17/18 Gabapentin 400 mg PO HS 08/17/18 Gabapentin [Neurontin -] 300 mg PO Q8H 08/17/18 Linagliptin [Tradjenta] 5 mg PO DAILY 08/17/18 Ranitidine [Zantac -] 150 mg PO DAILY 08/17/18 Tiotropium [place] [Spiriva] 1 inh PO DAILY 08/17/18 Prednisone 10 mg PO ASDIR #30 tablet 08/20/18 [place] home completed abx course on tapering steroids
== END 2018-08-25 16:56 | disposition home or self-care (01) | DRG 193 ==
LOC: JER 14:55 → JERBED 19:51 → J8W 08-18
PROVIDERS: ADMIT Internal Medicine; ATTEND Internal Medicine
DX: J18.9 Pneumonia, unspecified organism (principal); J96.02 Acute respiratory failure with hypercapnia; I13.0 Hypertensive heart and chronic kidney disease with heart failure and stage 1 through stage 4 chronic kidney disease, or unspecified chronic kidney disease; J44.1 Chronic obstructive pulmonary disease with (acute) exacerbation; J44.0 Chronic obstructive pulmonary disease with (acute) lower respiratory infection; I25.10 Atherosclerotic heart disease of native coronary artery without angina pectoris; I25.2 Old myocardial infarction; Z88.0 Allergy status to penicillin; D64.9 Anemia, unspecified; I50.9 Heart failure, unspecified; E11.22 Type 2 diabetes mellitus with diabetic chronic kidney disease; E78.5 Hyperlipidemia, unspecified; M32.9 Systemic lupus erythematosus, unspecified; N18.3 Chronic kidney disease, stage 3 (moderate); K27.9 Peptic ulcer, site unspecified, unspecified as acute or chronic, without hemorrhage or perforation; F17.210 Nicotine dependence, cigarettes, uncomplicated; E66.9 Obesity, unspecified; E11.65 Type 2 diabetes mellitus with hyperglycemia; Z68.33 Body mass index [BMI] 33.0-33.9, adult
CPT/HCPCS: 36415; 71046-TC-FY; 80048; 80053; 82803; 82947; 82962; 83880; 85025; 85027; 87804; 94640; 99283-25